=== PATIENT | male | born 1955 | race Caucasian/White ===

== ENCOUNTER 2019-03-09 00:02 | Emergency (ER) | payer MEDICARE, MEDICAID ==
[~2019-03-09] VITALS: Ht 195.5 cm; Wt 108.8 kg
[2019-03-09 00:39] LABS: ABG PCO2 49 MMHG (35-45); ABG PH 7.46 (7.37-7.43)
[2019-03-09 00:40] LABS: ABG BASE EXCESS 9.5 MMOL/L (-2.5-2.5); ABG OXYGEN SATURATION 55 % (94-100); ABG TCO2 36.3 MMOL/L (21.0-31.0)
[2019-03-09 00:41] LABS: ABG PO2 27 MMHG (79-93)
[2019-03-09 00:42] LABS: VENTILATOR NO
[2019-03-09 00:45] LABS: BASOPHILS % (AUTO) 1 % (0-10); EOSINOPHILS % (AUTO) 4 % (0-10); HEMATOCRIT 27 % (40-54); HEMOGLOBIN 8.5 G/DL (13.3-17.7); LYMPHOCYTES % (AUTO) 10 % (12-44); MEAN CORPUSCULAR HEMOGLOBIN 26 PG (25-34); MEAN CORPUSCULAR HGB CONC 32 G/DL (32-36); MEAN CORPUSCULAR VOLUME 83 FL (80-99); MEAN PLATELET VOLUME 9.9 FL (7.4-10.4); MONOCYTES % (AUTO) 6 % (0-12); NEUTROPHILS % (AUTO) 80 % (42-75); PLATELET COUNT 134 10^3/uL (130-400); RED CELL DISTRIBUTION WIDTH 13.8 % (10.0-14.5); WHITE BLOOD COUNT 3.4 10^3/uL (4.3-11.0)
[2019-03-09 00:46] LABS: EOSINOPHILS # (AUTO) 0.1 10^3/uL (0.0-0.3); LYMPHOCYTES # (AUTO) 0.4 X 10^3 (1.0-4.0); MONOCYTES # (AUTO) 0.2 X 10^3 (0.0-1.0); NEUTROPHILS # (AUTO) 2.7 X 10^3 (1.8-7.8)
[2019-03-09 00:50] LABS: ALLENS TEST NEG; INSPIRED O2 4
[2019-03-09 00:51] LABS: PATIENT TEMP 37.9 C
[2019-03-09 00:52] LABS: ALKALINE PHOSPHATASE 54 U/L (40-136); BILIRUBIN,TOTAL 0.8 MG/DL (0.1-1.0); BUN/CREATININE RATIO 16; CARBON DIOXIDE 27 MMOL/L (21-32); CHLORIDE 99 MMOL/L (98-107); CREATININE SERUM 1.53 MG/DL (0.60-1.30); GFR ESTIMATED 46; GLUCOSE 205 MG/DL (70-105); INR 1.3 (0.8-1.4); SODIUM 135 MMOL/L (135-145)
[2019-03-09 00:53] LABS: ALANINE AMINOTRANSFERASE < 5 U/L (0-55); ALBUMIN 3.2 GM/DL (3.2-4.5); LIPASE 14 U/L (8-78); TOTAL PROTEIN 6.5 GM/DL (6.4-8.2)
--- NOTE | 2019-03-09 00:59 | NUR ---
Patient is a poor historian. Full medical history is not obtained.
[2019-03-09] MEDS ORDERED: cefTRIAXone FOR IV USE 1,000 MG in WATER (STERILE) FOR INJECTION 10 ML IV ONE (01:00)
[2019-03-09] MEDS ORDERED: AZITHROMYCIN INJECTION 500 MG in NS (IVPB) 250 ML IV ONE (01:00)
[2019-03-09] MEDS ORDERED: FUROSEMIDE 40 MG/4 ML INJ (LASIX) IVP ONE (01:15)
--- NOTE | 2019-03-09 01:31 | ED Respiratory ---
General Chief Complaint: Respiratory Problems Stated Complaint: RESPIRATORY DISTRESS Nursing Triage Note: Patient arrived via EMS with complaints of shortness of breath over the last few days. EMS states that the patient's SPO2 was 83% on room air. EMS gave patient 125mg of Solumedrol and a DuoNeb. EMS also placed a 20g in the right wrist. EMS states that the patient lives in deplorable living conditions. There are several animals in the home. Patient does have fleas crawling all over him and he is very unkempt. Source: patient History of Present Illness Date Seen by Provider: Mar 09, 2019 Time Seen by Provider: 00:20 Initial Comments Patient is a 63-year-old male with history of chronic atrial fibrillation, congestive heart failure, chronic respiratory failure requiring supplemental oxygen who presents with increased peripheral edema over the past several days and increased shortness of breath over the past 3 days. Patient has required continuous oxygen use even during the daytime. He reports orthopnea and intermittent nocturnal dyspnea. Denies chest pain, chest tightness, fever but reports chronic cough. States he is compliant with his medications. He is not currently on anticoagulation therapy. No history of DVT or PE. Denies leg pain. No other acute symptoms or complaints. On EMS arrival, the patient was in mild respiratory distress. O2 saturations were in the low 80s on oxygen. Patient was placed on 6 L of O2 by nasal cannula, given single DuoNeb breathing treatment and 125 mg of Solu-Medrol. By IV and transported to the emergency department. Patient's cardiology team practices at [facility]. Timing/Duration: week Severity: moderate Prior Episodes/Possible Cause: other Modifying Factors: Improves With Activity, Improves With Coughing, Improves With Lying Down, Improves With Oxygen Associated Symptoms: shortness of breath Allergies and Home Medications Allergies Coded Allergies: oxycodone (Verified Allergy, Intermediate, 03/09/19) Patient Home Medication List Home Medication List Reviewed: Yes Review of Systems Review of Systems Constitutional: see HPI EENTM: see HPI Respiratory: see HPI Cardiovascular: see HPI Gastrointestinal: see HPI Genitourinary: see HPI Musculoskeletal: see HPI Skin: see HPI Psychiatric/Neurological: See HPI Hematologic/Lymphatic: See HPI Immunological/Allergic: see HPI Past Wncncij-Weglpj-Gylaid Hx Past Med/Social Hx: Reviewed Nursing Past Med/Soc Hx Patient Social History Alcohol Use: Denies Use Recreational Drug Use: No Smoking Status: Never a Smoker Recent Foreign Travel: No Contact w/Someone Who Travel: No Recent Infectious Disease Expo: No Physical Abuse: No Sexual Abuse: No Mistreated: No Fear: No Seasonal Allergies Seasonal Allergies: No Past Medical History Surgeries: Yes (Pacemaker) Respiratory: No Cardiac: Yes Atrial Fibrillation Neurological: No Genitourinary: No Gastrointestinal: No Musculoskeletal: No Endocrine: No HEENT: No Cancer: No Psychosocial: No Integumentary: No Physical Exam Vital Signs - First Documented 03/09/19 00:50 Temp 37.9 Pulse 109 Resp 26 B/P (MAP) 186/80 (115) Pulse Ox 92 O2 Delivery Nasal Cannula O2 Flow Rate 4.00 Capillary Refill : Less Than 3 Seconds Height: '" Weight: lbs. oz. 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, alert, normal mood/affect, oriented x 3 Focused Exam Sepsis Stage: Ruled Out Progress/Results/Core Measures Suspected Sepsis Recent Fever Within 48 Hours: No Infection Criteria Present: Suspected New Infection New/Unexplained Altered Menta: No Sepsis Screen: Possible Sepsis Risk SIRS Temperature: Pulse: 109 Respiratory Rate: 26 Laboratory Tests 03/09/19 00:10: White Blood Count 3.4L Blood Pressure 186 /80 Mean: 115 Laboratory Tests 03/09/19 00:10: Creatinine 1.53H, INR Comment 1.3, Platelet Count 134, Total Bilirubin 0.8 Results/Orders Lab Results Laboratory Tests Test 03/09/19 00:10 03/09/19 00:21 Range/Units White Blood Count 3.4 L 4.3-11.0 10^3/uL Red Blood Count 3.23 L 4.35-5.85 10^6/uL Hemoglobin 8.5 L 13.3-17.7 G/DL Hematocrit 27 L 40-54 % Mean Corpuscular Volume 83 80-99 FL Mean Corpuscular Hemoglobin 26 25-34 PG Mean Corpuscular Hemoglobin Concent 32 32-36 G/DL Red Cell Distribution Width 13.8 10.0-14.5 % Platelet Count 134 130-400 10^3/uL Mean Platelet Volume 9.9 7.4-10.4 FL Neutrophils (%) (Auto) 80 H 42-75 % Lymphocytes (%) (Auto) 10 L 12-44 % Monocytes (%) (Auto) 6 0-12 % Eosinophils (%) (Auto) 4 0-10 % Basophils (%) (Auto) 1 0-10 % Neutrophils # (Auto) 2.7 1.8-7.8 X 10^3 Lymphocytes # (Auto) 0.4 L 1.0-4.0 X 10^3 Monocytes # (Auto) 0.2 0.0-1.0 X 10^3 Eosinophils # (Auto) 0.1 0.0-0.3 10^3/uL Basophils # (Auto) 0.0 0.0-0.1 10^3/uL Prothrombin Time 17.0 H 12.2-14.7 SEC INR Comment 1.3 0.8-1.4 Activated Partial Thromboplast Time 51 H 24-35 SEC Sodium Level 135 135-145 MMOL/L Potassium Level 4.0 3.6-5.0 MMOL/L Chloride Level 99 98-107 MMOL/L Carbon Dioxide Level 27 21-32 MMOL/L Anion Gap 9 5-14 MMOL/L Blood Urea Nitrogen 25 H 7-18 MG/DL Creatinine 1.53 H 0.60-1.30 MG/DL Estimat Glomerular Filtration Rate 46 BUN/Creatinine Ratio 16 Glucose Level 205 H 70-105 MG/DL Calcium Level 9.0 8.5-10.1 MG/DL Corrected Calcium 9.6 8.5-10.1 MG/DL Total Bilirubin 0.8 0.1-1.0 MG/DL Aspartate Amino Transf (AST/SGOT) 14 5-34 U/L Alanine Aminotransferase (ALT/SGPT) < 5 0-55 U/L Alkaline Phosphatase 54 40-136 U/L Troponin I < 0.30 <0.30 NG/ML Pro-B-Type Natriuretic Peptide 4570.0 H <75.0 PG/ML Total Protein 6.5 6.4-8.2 GM/DL Albumin 3.2 3.2-4.5 GM/DL Lipase 14 8-78 U/L Serum Alcohol < 10 <10 MG/DL Blood Gas Puncture Site LEFT WRIST Blood Gas Patient Temperature 37.9 C Arterial Blood pH 7.46 H 7.37-7.43 Arterial Blood Partial Pressure CO2 49 H 35-45 MMHG Arterial Blood Partial Pressure O2 27 *L 79-93 MMHG Arterial Blood HCO3 35 H 23-27 MMOL/L Arterial Blood Total CO2 36.3 H 21.0-31.0 MMOL/L Arterial Blood Oxygen Saturation 55 L 94-100 % Arterial Blood Base Excess 9.5 H -2.5-2.5 MMOL/L Devyn Test NEG Blood Gas Ventilator Setting NO Blood Gas Inspired Oxygen 4 My Orders Orders - DIANA LEONARD DO Cbc With Automated Diff (03/09/19 00:07) Comprehensive Metabolic Panel (03/09/19 00:07) Lipase (03/09/19 00:07) Protime With Inr (03/09/19 00:07) Partial Thromboplastin Time (03/09/19 00:07) Chest 1 View Ap/Pa Only (03/09/19 00:07) Arterial Blood Gas (03/09/19 00:07) Lactic Acid Analyzer (03/09/19 00:07) Blood Culture (03/09/19 00:07) Troponin I Fs (03/09/19 00:07) Ua Culture If Indicated (03/09/19 00:07) Drug Screen Stat (Urine) (03/09/19 00:07) Alcohol (03/09/19 00:07) Ekg Tracing (03/09/19 00:07) Ceftriaxone For Iv Use (Rocephin For I (03/09/19 01:00) Azithromycin Injection (Zithromax Inject (03/09/19 01:00) Blood Culture (03/09/19 00:48) Probnp Fs (03/09/19 00:58) Furosemide Injection (Lasix Injection) (03/09/19 01:15) Medications Given in ED Current Medications Medications Dose Ordered Sig/Stephen Route Start Time Stop Time Status Last Admin Dose Admin Azithromycin 500 mg/Sodium Chloride 250 ml @ 250 mls/hr ONCE ONCE IV 03/09/19 01:00 03/09/19 01:59 03/09/19 01:21 250 MLS/HR Ceftriaxone Sodium 1000 mg/ Sterile Water 10 ml @ 200 mls/hr ONCE ONCE IV 03/09/19 01:00 03/09/19 01:02 DC 03/09/19 01:22 200 MLS/HR Furosemide 40 mg ONCE ONCE IVP 03/09/19 01:15 03/09/19 01:16 DC 03/09/19 01:21 40 MG Vital Signs/I&O 03/09/19 00:50 Temp 37.9 Pulse 109 Resp 26 B/P (MAP) 186/80 (115) Pulse Ox 92 O2 Delivery Nasal Cannula O2 Flow Rate 4.00 Capillary Refill : Less Than 3 Seconds Blood Pressure Mean: 115 Departure Communication (Admissions) EKG, chest x-ray, lab reviewed. Symptoms most consistent with congestive heart failure from volume overload in the setting of rate controlled A. fib. Chest x- ray suspicious for the presence of left lower lobe infiltrate. IV Lasix, breathing treatment IV Rocephin and Zithromax given. Blood pressure stable. O2 saturation greater than 95%. Patient accepted to [facility]. Will trasnfer by ambulance Impression Primary Impression: Acute and chronic respiratory failure Additional Impressions: Afib Congestive heart failure (CHF) Disposition: 02 XFER SHT-TRM HOSP Condition: Improved Transfer Method of Transfer: EMS Departure-Patient Inst. Decision time for Depature: 01:34 Referrals: UNKNOWN (PCP/Family) Primary Care Physician DIANA LEONARD DO Mar 09, 2019 01:31
[2019-03-09] MEDS ORDERED: ONDANSETRON 4 MG/2 ML (SDV) Z0FRAN ONE (02:20)
[2019-03-09] MEDS ORDERED: ONDANSETRON 4 MG/2 ML (SDV) Z0FRAN IVP ONE (02:30)
[2019-03-09 02:43] VITALS: BP 142/75
--- NOTE | 2019-03-09 06:39 | Diagnostic Imaging Report ---
Clinical indication: Patient with shortness of breath, respiratory distress. Exam: Portable chest x-ray upright view. Comparisons: None. Findings: Lungs/pleura: There is small to moderate amount of lung infiltrate involving the left midlung field left lung base. There is a small left pleural effusion. There is mild right basilar atelectasis versus infiltrate. The remainder of the lungs are clear. There is no pneumothorax. There is no pleural effusion. Mediastinum: Unremarkable. Pulmonary vasculature: There is mild pulmonary vascular congestion. Heart: Patient has dextrocardia with aortic arch on the right side. Patient positioning was discussed with x-ray tech. Bones/extrathoracic soft tissue: No hypertrophic spurs involving the spine. 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 There is cardiomegaly with mild pulmonary vascular congestion. 2: There is mild to moderate left midlung field and left lung base infiltrate. This may be from infectious process or from pulmonary congestion. 3: There is mild right lung base atelectasis versus infiltrate. 4: There is a small left pleural effusion. Dictated by: Dictated on workstation # [id number]
== END 2019-03-09 02:43 | disposition short-term general hospital (02) ==
LOC: ER FS 00:05
DX: J96.20 Acute and chronic respiratory failure, unspecified whether with hypoxia or hypercapnia (principal); I48.91 Unspecified atrial fibrillation; I50.9 Heart failure, unspecified; Z88.5 Allergy status to narcotic agent; Z95.0 Presence of cardiac pacemaker
CPT/HCPCS: 71045; 80053; 80320; 82805; 83690; 83880; 84484; 85610; 85730; 87040; 93005; 96365; 96375

== ENCOUNTER → 2020-03-23 | Outpatient (CLI) | payer MEDICARE, MEDICAID ==
[~2020-03-23] MED LIST: AMLO10TA7 PO; CHOL500049 PO; DABI150C5 PO; DILT240C91 PO; DULO60CA59 PO; ERGO2000 PO; EXEN2PEN SC; FENO145T26 PO; FURO20TA4 PO; GABA-486 PO; LEVO50TA6 PO; LORA-714 PO; LORA10TA7 PO; MTP25TSR PO; OMEP20CA18 PO; OMEP20TA7 PO; SACU1TAB2 PO; SACU1TAB4 PO; TMSL.4C PO; TRAM50TA3 PO; VANC1.5V3 IV
[2020-03-23 17:36] LABS: ALBUMIN 3.2 GM/DL (3.2-4.5); BILIRUBIN,TOTAL 0.5 MG/DL (0.1-1.0); CALCIUM 8.3 MG/DL (8.5-10.1); CREATININE SERUM 6.69 MG/DL (0.60-1.30); POTASSIUM 5.4 MMOL/L (3.6-5.0); TOTAL PROTEIN 6.9 GM/DL (6.4-8.2)
[2020-03-23 17:40] LABS: BASOPHILS % (AUTO) 1 % (0-10); EOSINOPHILS # (AUTO) 0.1 10^3/uL (0.0-0.3); EOSINOPHILS % (AUTO) 3 % (0-10); HEMATOCRIT 24 % (40-54); HEMOGLOBIN 7.6 G/DL (13.3-17.7); LYMPHOCYTES # (AUTO) 0.5 X 10^3 (1.0-4.0); LYMPHOCYTES % (AUTO) 18 % (12-44); MEAN CORPUSCULAR HEMOGLOBIN 27 PG (25-34); MEAN CORPUSCULAR HGB CONC 32 G/DL (32-36); MEAN CORPUSCULAR VOLUME 85 FL (80-99); MEAN PLATELET VOLUME 10.6 FL (7.4-10.4); MONOCYTES # (AUTO) 0.4 X 10^3 (0.0-1.0); MONOCYTES % (AUTO) 12 % (0-12); NEUTROPHILS % (AUTO) 66 % (42-75); PLATELET COUNT 207 10^3/uL (130-400)
[2020-03-23 18:12] LABS: VANCOMYCIN,TROUGH 53.8 UG/ML (10.0-20.0)
== END ==
LOC: LAB FS 15:43
PROVIDERS: ATTEND Emergency Medicine
DX: I40.0 Infective myocarditis (principal); A41.9 Sepsis, unspecified organism
CPT/HCPCS: 36415; 80053; 80202; 85025

== ENCOUNTER 2020-03-28 23:34 | Emergency (ER) | payer MEDICARE, MEDICAID ==
[~2020-03-28] VITALS: Ht 193 cm; Wt 115.0 kg
[2020-03-29 00:19] LABS: BASOPHILS % (AUTO) 1 % (0-10); EOSINOPHILS % (AUTO) 1 % (0-10); HEMATOCRIT 23 % (40-54); HEMOGLOBIN 7.5 g/dL (13.3-17.7); LYMPHOCYTES # (AUTO) 0.3 10^3/uL (1.0-4.0); LYMPHOCYTES % (AUTO) 9 % (12-44); MEAN CORPUSCULAR HEMOGLOBIN 27 pg (25-34); MEAN CORPUSCULAR HGB CONC 32 g/dL (32-36); MEAN CORPUSCULAR VOLUME 83 fL (80-99); MEAN PLATELET VOLUME 9.3 fL (9.0-12.2); MONOCYTES # (AUTO) 0.4 10^3/uL (0.0-1.0); MONOCYTES % (AUTO) 11 % (0-12); NEUTROPHILS # (AUTO) 2.5 10^3/uL (1.8-7.8); NEUTROPHILS % (AUTO) 78 % (42-75); PLATELET COUNT 184 10^3/uL (130-400); WHITE BLOOD COUNT 3.2 10^3/uL (4.3-11.0)
[2020-03-29 00:29] LABS: ALBUMIN 3.2 GM/DL (3.2-4.5)
[2020-03-29 00:31] LABS: CALCIUM 7.7 MG/DL (8.5-10.1)
[2020-03-29 00:32] LABS: TOTAL PROTEIN 6.8 GM/DL (6.4-8.2)
[2020-03-29 00:34] LABS: BILIRUBIN,TOTAL 1.1 MG/DL (0.1-1.0)
[2020-03-29 00:36] LABS: CREATININE SERUM 11.85 MG/DL (0.60-1.30)
[2020-03-29 00:39] LABS: INR 4.3 (0.8-1.4); MAGNESIUM 1.2 MG/DL (1.6-2.4); PROTHROMBIN TIME PATIENT 41.2 SEC (12.2-14.7)
[2020-03-29 00:46] LABS: CREATINE KINASE MB 3.1 NG/ML (<6.6)
[2020-03-29] MEDS ORDERED: methylPREDNISolone 125 MG (Solu-MEDROL) VIAL IV STA (00:49)
[2020-03-29 00:58] LABS: ABG BASE EXCESS -0.8 MMOL/L (-2.5-2.5); ABG OXYGEN SATURATION 99 % (94-100); ABG PCO2 38 MMHG (35-45); ABG PH 7.41 (7.37-7.43); ABG PO2 189 MMHG (79-93); ABG TCO2 24.6 MMOL/L (21.0-31.0)
[2020-03-29 00:59] LABS: ALLENS TEST POSITIVE; INSPIRED O2 15; PATIENT TEMP 36.6; VENTILATOR NO
[2020-03-29] MEDS ORDERED: CALCIUM CHLORIDE 1 GM/10 ML (IMS) SYR INJ ONE (01:00)
[2020-03-29] MEDS ORDERED: SOD POLYSTERENE 15 GM/60 ML (KAYEXALATE) UNIT DOSE PO ONE (01:00)
[2020-03-29] MEDS ORDERED: DEXTROSE 50% 50 ML (IMS) SYR IV ONE (01:00)
[2020-03-29] MEDS ORDERED: FUROSEMIDE 40 MG/4 ML INJ (LASIX) IVP ONE ×3 (01:00→03:00)
[2020-03-29] MEDS ORDERED: inSUlin (REGULAR) HUMAN 1 UNIT/0.01 ML (CHARGE PER UNIT) IV ONE (01:00)
[2020-03-29] MEDS ORDERED: RT-ALBUTEROL/IPRATROPIUM 3 ML (DUONEB) VIAL INH ONE (01:00)
--- NOTE | 2020-03-29 01:11 | ED General ---
General Chief Complaint: General Problems/Pain Stated Complaint: JAUNDICE, DIZZY Nursing Triage Note: brought in by [facility] ems for generalized weakness. reports he is supposed to start dialysis today. Nursing Sepsis Screen: No Definite Risk Source of Information: Patient (LIMITED HISTORIAN), Old Records History of Present Illness Date Seen by Provider: Mar 28, 2020 Time Seen by Provider: 23:33 Initial Comments PT ARRIVES VIA [facility] FROM HOME IN [place] PT CALLED EMS FOR GENERALIZED WEAKNESS AND DIZZINESS--STATES ALL DAY TODAY PT WITH INCREASED SHORTNESS OF BREATH X 2 DAYS NO CHEST PAIN NO FEVER/SWEATS/CHILLS NO NAUSEA/VOMITING/DIARRHEA NO COUGH PT WAS ADMITTED 03/09-03/16 FOR RESPIRATORY FAILURE, RENAL FAILURE. CHRONIC ATRIAL FIBRILLATION, MRSA BACTEREMIA/SEPSIS ( UNKNOWN SOURCE)--PRESENTED WITH ALTERED MENTAL STATUS PT STATES HE WAS SUPPOSED TO BE STARTING ON DIALYSIS TODAY--HAS NO IDEA WHERE HE WAS TO BE DOING THAT. 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 WAS RECEIVING VANCOMYCIN PT DOES HAVE A PACEMAKER IN PLACE PT WAS COVID-19 NEGATIVE ON 03/10/20 PCP: DR. SWAIN, [place] [facility]: [facility] Allergies and Home Medications Allergies Coded Allergies: oxycodone (Verified Allergy, Intermediate, 03/09/19) Home Medications Cholecalciferol (Vitamin D3) 1,250 Mcg Capsule, 1,250 MCG PO EVERY 2 WEEKS, (Reported) Dabigatran Etexilate Mesylate 150 Mg Capsule, 150 MG PO BID, (Reported) Diltiazem HCl 240 Mg Cap.er.24h, 240 MG PO DAILY Prescribed by: ABRAHAM ONEAL on 03/16/20 1120 Duloxetine HCl 60 Mg Capsule.dr, 60 MG PO DAILY, (Reported) Exenatide Microspheres 2 Mg/0.65 Ml Pen.injctr, 2 MG SC TUES, (Reported) Fenofibrate Nanocrystallized 145 Mg Tablet, 145 MG PO DAILY, (Reported) Furosemide 20 Mg Tablet, 40 MG PO DAILY, (Reported) TAKES 2 (20MG) TABS Furosemide 20 Mg Tablet, 40 MG PO 1800 PRN for WEIGHTGAIN OVER 2 LB, (Reported) Gabapentin 100 Mg Capsule, 100 MG PO TID, (Reported) Levothyroxine Sodium 50 Mcg Tablet, 50 MCG PO DAILY, (Reported) Loratadine 10 Mg Tablet, 10 MG PO DAILY, (Reported) Metoprolol Succinate 25 Mg Tab.er.24h, 25 MG PO DAILY, (Reported) Omeprazole 20 Mg Capsule.dr, 20 MG PO DAILY, (Reported) Sacubitril/Valsartan 1 Each Tablet, 1 EA PO DAILY, (Reported) Tamsulosin HCl 0.4 Mg Cap, 0.4 MG PO 1800, (Reported) Tramadol HCl 50 Mg Tablet, 50 MG PO BID PRN for PAIN-MODERATE (5-7), (Reported) Vancomycin HCl in Water 1.5 Gm/15 Ml Vial, 1.5 GM IV DAILY Prescribed by: ABRAHAM ONEAL on 03/16/20 1120 Patient Home Medication List Home Medication List Reviewed: Yes Review of Systems Review of Systems Constitutional: No chills, No diaphoresis; dizziness; No fever; malaise, weakness EENTM: no symptoms reported Respiratory: see HPI, orthopnea, short of breath Cardiovascular: see HPI; No chest pain; edema; No syncope Gastrointestinal: no symptoms reported; No abdominal pain, No nausea, No vomiting Genitourinary: see HPI; No decreased output Musculoskeletal: no symptoms reported Skin: no symptoms reported Psychiatric/Neurological: No Symptoms Reported Past Uvzfnqm-Sfdbcg-Ijvzfj Hx Patient Social History Alcohol Use: Denies Use (DRANK AGE 21) Recreational Drug Use: No Smoking Status: Former Smoker (1 PPD, QUIT > 35 YEARS AGO) Type Used: Cigarettes Recent Foreign Travel: No Contact w/Someone Who Travel: No Recent Infectious Disease Expo: No Recent Hopitalizations: No Seasonal Allergies Seasonal Allergies: Yes Past Medical History Surgeries: Yes (Pacemaker) Pacemaker Respiratory: Yes (O2 PRN) Cardiac: Yes (Dextrocardia, Heart Failure) Atrial Fibrillation, Cardiomyopathy, Chronic Edema/Swelling, High Cholesterol, Hypertension Neurological: Yes Neuropathy Genitourinary: Yes Benign Prostatic Hyperpl, Renal Failure Gastrointestinal: Yes Gastroesophageal Reflux Musculoskeletal: No Endocrine: Yes (MORBID OBESITY) Diabetes, Insulin dep, Hypothyroidsim HEENT: No Cancer: No Psychosocial: Yes Depression Integumentary: No Blood Disorders: No Family Medical History ADMITTED 03/09/20 FOR MRSA BACTEREMIA WITH SEPSIS, DX WITH RENAL FAILURE AND WAS TO START DIALYSIS 03/29/20 Physical Exam Vital Signs Vital Signs - First Documented 03/28/20 03/29/20 23:35 02:17 Temp 36.6 Pulse 129 Resp 27 B/P (MAP) 140/91 (107) Pulse Ox 100 O2 Delivery Room Air O2 Flow Rate 6.00 Capillary Refill : Less Than 3 Seconds Height, Weight, BMI Height: '" Weight: lbs. oz. kg; 30.00 BMI Method: General Appearance: Moderate Distress (MODERATE DYSPNEA, TALKS IN 2-3 WORD PHRASES. ), Obese, Other (DIRTY, MALODOROUS, UNKEMPT. LETHARGIC. ) HEENT: Other (EDENTULOUS) Respiratory: Accessory Muscle Use, Decreased Breath Sounds, Rales, Other (MODERATE DISTRESS, WITH ABDOMINAL BREATHING. NO BREATH SOUNDS IN RIGHT BASE, FAINT RALES IN LEFT BASE. ) Cardiovascular: Irregularly Irregular, Tachycardia Gastrointestinal: Non Tender, Soft Extremity: Normal Range of Motion, No Calf Tenderness, Pedal Edema (2+ ON RIGHT, TRACE ON LEFT. 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 ) Neurologic/Psychiatric: Alert, Oriented x3 (BUT WITH LETHARGY), No Motor/Sensory Deficits (GROSSLY INTACT, WITH HX OF PERIPHERAL NEUROPATHY) Skin: Warm/Dry, Pallor, Other (EXTENSIVE SORES/SCARS/SCABS AND SCRATCH JARA TO LEGS, ABDOMEN, AND ARMS--PT STATES IS FROM HIS CATS. NO OBVIOUS INFECTION TO ANY OF THESE SITES. ) Progress/Results/Core Measures Suspected Sepsis Recent Fever Within 48 Hours: No Infection Criteria Present: None New/Unexplained Altered Menta: No Sepsis Screen: No Definite Risk SIRS Temperature: Pulse: 129 Respiratory Rate: 27 Laboratory Tests 03/29/20 00:05: White Blood Count 3.2L Blood Pressure 140 /91 Mean: 107 Laboratory Tests 03/29/20 00:05: Creatinine 11.85#H, INR Comment 4.3H, Platelet Count 184, Total Bilirubin 1.1H Results/Orders Lab Results Laboratory Tests Test 03/29/20 00:05 03/29/20 00:32 Range/Units White Blood Count 3.2 L 4.3-11.0 10^3/uL Red Blood Count 2.80 L 4.30-5.52 10^6/uL Hemoglobin 7.5 L 13.3-17.7 g/dL Hematocrit 23 L 40-54 % Mean Corpuscular Volume 83 80-99 fL Mean Corpuscular Hemoglobin 27 25-34 pg Mean Corpuscular Hemoglobin Concent 32 32-36 g/dL Red Cell Distribution Width 13.8 10.0-14.5 % Platelet Count 184 130-400 10^3/uL Mean Platelet Volume 9.3 9.0-12.2 fL Immature Granulocyte % (Auto) 1 % Neutrophils (%) (Auto) 78 H 42-75 % Lymphocytes (%) (Auto) 9 L 12-44 % Monocytes (%) (Auto) 11 0-12 % Eosinophils (%) (Auto) 1 0-10 % Basophils (%) (Auto) 1 0-10 % Neutrophils # (Auto) 2.5 1.8-7.8 10^3/uL Lymphocytes # (Auto) 0.3 L 1.0-4.0 10^3/uL Monocytes # (Auto) 0.4 0.0-1.0 10^3/uL Eosinophils # (Auto) 0.0 0.0-0.3 10^3/uL Basophils # (Auto) 0.0 0.0-0.1 10^3/uL Immature Granulocyte # (Auto) 0.0 0.0-0.1 10^3/uL Prothrombin Time 41.2 H 12.2-14.7 SEC INR Comment 4.3 H 0.8-1.4 Activated Partial Thromboplast Time 127 *H 24-35 SEC Sodium Level 126 L 135-145 MMOL/L Potassium Level 6.0 H 3.6-5.0 MMOL/L Chloride Level 87 L 98-107 MMOL/L Carbon Dioxide Level 20 L 21-32 MMOL/L Anion Gap 19 H 5-14 MMOL/L Blood Urea Nitrogen 66 H 7-18 MG/DL Creatinine 11.85 #H 0.60-1.30 MG/DL Estimat Glomerular Filtration Rate 4 BUN/Creatinine Ratio 6 Glucose Level 182 H 70-105 MG/DL Calcium Level 7.7 L 8.5-10.1 MG/DL Corrected Calcium 8.3 L 8.5-10.1 MG/DL Magnesium Level 1.2 L 1.6-2.4 MG/DL Total Bilirubin 1.1 H 0.1-1.0 MG/DL Aspartate Amino Transf (AST/SGOT) 17 5-34 U/L Alanine Aminotransferase (ALT/SGPT) 9 0-55 U/L Alkaline Phosphatase 43 40-136 U/L Lactate Dehydrogenase 214 125-220 U/L Total Creatine Kinase 208 H 30-200 U/L Creatine Kinase MB 3.1 <6.6 NG/ML Troponin I 0.035 H <0.028 NG/ML B-Type Natriuretic Peptide 1080.5 H <100.0 PG/ML Total Protein 6.8 6.4-8.2 GM/DL Albumin 3.2 3.2-4.5 GM/DL Procalcitonin 0.23 H <0.10 NG/ML Coronavirus 2019 (OPAL) Negative Negative Blood Gas Puncture Site LEFT RADIAL Blood Gas Patient Temperature 36.6 Arterial Blood pH 7.41 7.37-7.43 Arterial Blood Partial Pressure CO2 38 35-45 MMHG Arterial Blood Partial Pressure O2 189 H 79-93 MMHG Arterial Blood HCO3 23 23-27 MMOL/L Arterial Blood Total CO2 24.6 21.0-31.0 MMOL/L Arterial Blood Oxygen Saturation 99 94-100 % Arterial Blood Base Excess -0.8 -2.5-2.5 MMOL/L Devyn Test POSITIVE Blood Gas Ventilator Setting NO Blood Gas Inspired Oxygen 15 Micro Results Microbiology 03/29/20 Influenza Types A,B Antigen (BLAKE) - Final, Complete 03/29/20 Blood Culture - Preliminary, Resulted No growth My Orders Orders - DARRELL AMAYA DO Ed Iv/Invasive Line Start (03/28/20 23:40) Ekg Tracing (03/28/20 23:40) O2 (03/28/20 23:40) Monitor-Rhythm Ecg Trace Only (03/28/20 23:40) Arterial Blood Gas (03/28/20 23:40) BNP (03/28/20 23:40) Cbc With Automated Diff (03/28/20 23:40) Comprehensive Metabolic Panel (03/28/20 23:40) Creatine Kinase (03/28/20 23:40) Creatine Kinase Mb (03/28/20 23:40) Magnesium (03/28/20 23:40) Protime With Inr (03/28/20 23:40) Partial Thromboplastin Time (03/28/20 23:40) Blood Culture (03/28/20 23:40) Influenza A And B Antigens (03/28/20 23:40) Troponin I (03/28/20 23:40) Procalcitonin (Pct) (03/28/20 23:42) LDH (03/28/20 23:42) Covid 19 Inhouse Test (03/28/20 23:42) Chest 1 View, Ap/Pa Only (03/29/20 00:07) Calcium Chloride 10% Injection (Calcium (03/29/20 01:00) D50w (Emergency) Syringe (Dextrose 50% 5 (03/29/20 01:00) Insulin (Regular) Human (Novolin R (Per (03/29/20 01:00) Sodium Polystyrene Sulfonate (Kayexalate (03/29/20 01:00) Albuterol/Ipra Inhalation Soln (Duoneb I (03/29/20 01:00) Rt Request For Service (03/29/20 00:49) Methylprednisolone Sod Succ (Solu-Medrol (03/29/20 00:49) Svn Small Volume Nebulizer (03/29/20 00:49) Magnesium 1 Gm/100 Ml Ivpb (Magnesium Mei (03/29/20 01:00) Furosemide Injection (Lasix Injection) (03/29/20 01:00) Diltiazem Injection (Cardizem Injection) (03/29/20 01:00) Calcium Gluconate 10% Inj (Calcium Glu (03/29/20 01:30) Furosemide Injection (Lasix Injection) (03/29/20 03:00) Furosemide Injection (Lasix Injection) (03/29/20 03:00) Catheter(Urinary) Insert & Ass 03,15 (03/29/20 03:00) Medications Given in ED Vital Signs/I&O 03/29/20 08:33 Pulse 100 Resp 18 B/P (MAP) 109/92 Pulse Ox 100 O2 Delivery Nasal Cannula O2 Flow Rate 4.00 Capillary Refill : Less Than 3 Seconds Blood Pressure Mean: 107 Progress Note : Progress Note NO DETERIORATION IN PT'S CONDITION DURING ER STAY INITIALLY CONTINUED ON O2 AT 15L/NRB. WAS ABLE TO TITRATE THIS DOWN GIVEN LASIX, SOLU-MEDROL, MAGNESIUM GIVEN CALCIUM GLUCONATE, D50, INSULIN, KAYEXELATE AND HOUR LONG ALBUTEROL TREATMENT FOR HYPERKALEMIA GIVEN CARDIZEM WITH DECREASE IN HEART RATE TO 80-100, BP STABLE AT >100 SYSTOLIC PT REPEATEDLY ADAMANTLY REFUSES MAURO CATHETER RAPID COVID-19 TEST NEGATIVE ECG Initial ECG Impression Date: Mar 28, 2020 Initial ECG Impression Time: 23:38 Initial ECG Rate: 139 Initial ECG Impression: Nonspecific Changes (OLD ANTERIOR WAVES. LOW VOLTAGE ), Atrial Fibrillation, Atrial Fibrillation w/RVR Diagnostic Imaging Comments CXR--DEXTROCARDIA WITH CARDIOMEGALY, CHF/FLUID OVERLOAD, PENDING RADIOLOGIST REVIEW Reviewed: Reviewed by Me Departure Communication (Admissions) 0138--CALLED [facility], WILL CALL BACK. PAGING PSYCH ARNP. 0208--[facility] CALLED BACK. STILL PAGING PSYCH ARNP. WILL CALL BACK 0209--CALLED [facility], ON DIVERSION/NO BEDS AVAILABLE 021--CALLED [facility], ON DIVERSION/NO BEDS AVAILABLE 0213--CALLED [facility], ON DIVERSION/NO BEDS AVAILABLE. THEY WILL ATTEMPT TO FIND BED AT [facility] IN [place] 0226--[facility] CALLED BACK. DR. ALEJANDRA DE LA CRUZ, PSYCH ARNP HAS ACCEPTED PT FOR ADMIT/TRANSFER. ADVISES AN ADDITIONAL 120 MG OF LASIX ( FOR A TOTAL OF 200 MG LASIX) 0254--SPOKE WITH MARLIN ZAVALETA WITH , REPORT GIVEN. NO ADDITIONAL RECOMMENDATIONS. WILL CALL BACK WITH BED ASSIGNMENT 0331--[facility] CALLED BACK WITH BED ASSIGNMENT AND NURSE REPORT # [id number]--RECEIVED CALL BACK ABOUT [facility] [place]. ADVISED THEM PT HAS NOW BEEN ACCEPTED AT . 0350--[facility] CONTACTED FOR TRANSFER AND ARE UNAVAILABLE FOR TRANSFER AT THIS TIME. [facility] HAS BEEN CONTACTED FOR TRANSFER. WILL NOT BE ABLE TO TRANSFER UNTIL AFTER SHIFT CHANGE AT 0800 THIS AM. Impression Primary Impression: Renal failure Additional Impressions: Fluid overload Hypoxia Atrial fibrillation with RVR Chronic atrial fibrillation T2DM (type 2 diabetes mellitus) Anemia Neutropenia Cat scratch of multiple sites RECENT MRSA SEPSIS Hyperkalemia Hyponatremia Hypomagnesemia Hypocalcemia Obesity Right leg swelling Disposition: 02 XFER SHT-TRM HOSP Condition: Stable Transfer Transfer Reason: Exceeds level of care Transfer Facility: [facility] Method of Transfer: EMS Departure-Patient Inst. Referrals: DEYSI SWAIN DO (PCP/Family) Primary Care Physician DARRELL AMAYA DO Mar 29, 2020 01:11
[2020-03-29] MEDS ORDERED: CALCIUM GLUC. 10% 4.65 MEQ/10 ML VIAL IV ONE (01:30)
[2020-03-29] MEDS: MAGNESIUM 1 GM/100 ML IVPB 100 ML IV SCH ×2 (01:40→02:36)
--- NOTE | 2020-03-29 03:10 | NUR ---
pt refused kessler catheter
--- NOTE | 2020-03-29 03:35 | NUR ---
pt informed of bed assignment.
--- NOTE | 2020-03-29 03:41 | NUR ---
[facility] shift capt. informed of transfer. no transport truck available until after shift change.
--- NOTE | 2020-03-29 03:43 | NUR ---
[facility] ems unable to transport pt.
--- NOTE | 2020-03-29 03:44 | NUR ---
[facility] dispatch contacted for transfer.
--- NOTE | 2020-03-29 03:50 | NUR ---
pt informed no transport available at this time. plan for transfer after ems shift change.
--- NOTE | 2020-03-29 07:00 | NUR ---
EMS DISPATCH CALLED THEY ARE AWARE OF TRANSFER TO GO AFTER 0800
--- NOTE | 2020-03-29 07:14 | Diagnostic Imaging Report ---
INDICATION: Dyspnea. Comparison made with prior examination 03/16/2020. FINDINGS: There is dextrocardia. There is a left basilar infiltrate. There may be a small left pleural effusion. There is some venous congestion. There is no pneumothorax. Mediastinum is unremarkable. Pacemaker overlies left hemithorax. IMPRESSION: Left basilar infiltrate and small left pleural effusion suspect for pneumonia. Cardiomegaly and some central pulmonary venous congestion. Incidental dextrocardia. Dictated by: Dictated on workstation # [id number]
--- NOTE | 2020-03-29 07:15 | NUR ---
TO ROOM MONITOR SHOWS A FIB WITH RATE OF 100 NO NEW C/O
--- NOTE | 2020-03-29 08:20 | NUR ---
WAITING FOR EMS FOR TRANSFER. HR 113 SAO2 95 4L NC
--- NOTE | 2020-03-29 08:31 | NUR ---
EMS HERE FOR TRANSFER TO [facility] TRANSFER CENTER NOTIFIED PATIENT WAS LEAVNG VIA [facility].
[2020-03-29 08:33] VITALS: BP 109/92
== END 2020-03-29 08:36 | disposition short-term general hospital (02) ==
LOC: EDUNIT# 23:34 → ER 23:36
DX: E11.22 Type 2 diabetes mellitus with diabetic chronic kidney disease (principal); N18.9 Chronic kidney disease, unspecified; I12.9 Hypertensive chronic kidney disease with stage 1 through stage 4 chronic kidney disease, or unspecified chronic kidney disease; E87.70 Fluid overload, unspecified; R09.02 Hypoxemia; I48.20 Chronic atrial fibrillation, unspecified; D64.9 Anemia, unspecified; D70.9 Neutropenia, unspecified; A41.02 Sepsis due to Methicillin resistant Staphylococcus aureus; E87.5 Hyperkalemia; E87.1 Hypo-osmolality and hyponatremia; E83.42 Hypomagnesemia; E83.51 Hypocalcemia; K21.9 Gastro-esophageal reflux disease without esophagitis; N40.0 Benign prostatic hyperplasia without lower urinary tract symptoms; E78.00 Pure hypercholesterolemia, unspecified; E03.9 Hypothyroidism, unspecified; E66.01 Morbid (severe) obesity due to excess calories; Z68.30 Body mass index [BMI] 30.0-30.9, adult; Z87.891 Personal history of nicotine dependence; Z95.0 Presence of cardiac pacemaker; Z79.890 Hormone replacement therapy; Z88.5 Allergy status to narcotic agent; Z20.828 Contact with and (suspected) exposure to other viral communicable diseases
CPT/HCPCS: 36415; 71045; 80053; 82550; 82553; 82805; 83615; 83735; 83880; 84145; 84484; 85025; 85610; 85730; 87040; 87635; 87804; 93005; 93041; 94640; 99291

== ENCOUNTER 2020-04-16 14:23 | Emergency (ER) | payer MEDICARE, MEDICAID ==
[~2020-04-16] VITALS: Ht 182 cm; Wt 110.0 kg
[~2020-04-16 14:23] MED LIST changes: +AMLO-251 PO; -AMLO10TA7 PO
--- NOTE | 2020-04-16 14:41 | ED General ---
General Stated Complaint: LEG SWELLING Source of Information: Patient Exam Limitations: No Limitations History of Present Illness Date Seen by Provider: Apr 16, 2020 Time Seen by Provider: 14:39 Initial Comments To ER by private vehicle from home with reports of lower extremity swelling. This affects both lower extremities. It was noticed at the dialysis center today. He gets hemodialysis Monday. He completed his entire course of dialysis today but the dialysis staff was concerned about the degree of swelling both lower legs. He was also supposed to have a vancomycin infusion for "the valves around the heart" at 1 PM today but he missed that appointment. He states that both lower extremity been swollen since he was released from 2 weeks ago. Severity: Moderate Associated Systoms: Denies Symptoms Allergies and Home Medications Allergies Coded Allergies: oxycodone (Verified Allergy, Intermediate, 03/09/19) Home Medications Cholecalciferol (Vitamin D3) 1,250 Mcg Capsule, 1,250 MCG PO EVERY 2 WEEKS, (Reported) Dabigatran Etexilate Mesylate 150 Mg Capsule, 150 MG PO BID, (Reported) Diltiazem HCl 240 Mg Cap.er.24h, 240 MG PO DAILY Prescribed by: ABRAHAM ONEAL on 03/16/20 1120 Duloxetine HCl 60 Mg Capsule.dr, 60 MG PO DAILY, (Reported) Exenatide Microspheres 2 Mg/0.65 Ml Pen.injctr, 2 MG SC TUES, (Reported) Fenofibrate Nanocrystallized 145 Mg Tablet, 145 MG PO DAILY, (Reported) Furosemide 20 Mg Tablet, 40 MG PO DAILY, (Reported) TAKES 2 (20MG) TABS Furosemide 20 Mg Tablet, 40 MG PO 1800 PRN for WEIGHTGAIN OVER 2 LB, (Reported) Gabapentin 100 Mg Capsule, 100 MG PO TID, (Reported) Levothyroxine Sodium 50 Mcg Tablet, 50 MCG PO DAILY, (Reported) Loratadine 10 Mg Tablet, 10 MG PO DAILY, (Reported) Metoprolol Succinate 25 Mg Tab.er.24h, 25 MG PO DAILY, (Reported) Omeprazole 20 Mg Capsule.dr, 20 MG PO DAILY, (Reported) Sacubitril/Valsartan 1 Each Tablet, 1 EA PO DAILY, (Reported) Tamsulosin HCl 0.4 Mg Cap, 0.4 MG PO 1800, (Reported) Tramadol HCl 50 Mg Tablet, 50 MG PO BID PRN for PAIN-MODERATE (5-7), (Reported) Vancomycin HCl in Water 1.5 Gm/15 Ml Vial, 1.5 GM IV DAILY Prescribed by: ABRAHAM ONEAL on 03/16/20 1120 Patient Home Medication List Home Medication List Reviewed: Yes Review of Systems Review of Systems Constitutional: see HPI EENTM: see HPI Respiratory: no symptoms reported Cardiovascular: no symptoms reported Genitourinary: no symptoms reported Musculoskeletal: see HPI Skin: no symptoms reported Psychiatric/Neurological: No Symptoms Reported Hematologic/Lymphatic: No Symptoms Reported Immunological/Allergic: no symptoms reported Past [place]elbb[place]-Okeiqm-Jqlqom Hx Patient Social History Type Used: Cigarettes Recent Foreign Travel: No Contact w/Someone Who Travel: No Recent Hopitalizations: No Seasonal Allergies Seasonal Allergies: Yes Past Medical History Surgeries: Yes (Pacemaker) Pacemaker Respiratory: Yes (O2 PRN) Cardiac: Yes (Dextrocardia, Heart Failure) Atrial Fibrillation, Cardiomyopathy, Chronic Edema/Swelling, High Cholesterol, Hypertension Neurological: Yes Neuropathy Genitourinary: Yes Benign Prostatic Hyperpl, Renal Failure Gastrointestinal: Yes Gastroesophageal Reflux Musculoskeletal: No Endocrine: Yes (MORBID OBESITY) Diabetes, Insulin dep, Hypothyroidsim HEENT: No Cancer: No Psychosocial: Yes Depression Integumentary: No Blood Disorders: No Family Medical History ADMITTED 03/09/20 FOR MRSA BACTEREMIA WITH SEPSIS, DX WITH RENAL FAILURE AND WAS TO START DIALYSIS 03/29/20 Physical Exam Vital Signs Vital Signs - First Documented 04/16/20 14:52 Temp 35.2 Pulse 112 Resp 18 B/P (MAP) 140/89 (106) Pulse Ox 96 Capillary Refill : Height, Weight, BMI Height: '" Weight: lbs. oz. kg; 30.00 BMI Method: General Appearance: No Apparent Distress, WD/WN Eyes: Bilateral Eye Normal Inspection, Bilateral Eye PERRL, Bilateral Eye EOMI Respiratory: No Accessory Muscle Use, No Respiratory Distress Gastrointestinal: Normal Bowel Sounds, Non Tender, Soft Neurologic/Psychiatric: Alert, Oriented x3 Skin: Normal Color, Warm/Dry, Other (Swelling both lower extremities and chronic brownish discoloration of the right lower extremity with little bit of weeping of serous fluid.) Focused Exam Lactate Level 04/16/20 15:10: Lactic Acid Level 1.10 Lactic Acid Level Laboratory Tests Test 04/16/20 15:10 Lactic Acid Level 1.10 MMOL/L (0.50-2.00) Progress/Results/Core Measures Suspected Sepsis SIRS Temperature: Pulse: Respiratory Rate: Laboratory Tests 04/16/20 15:10: White Blood Count 4.1L Blood Pressure / Mean: 04/16/20 15:10: Lactic Acid Level 1.10 Laboratory Tests 04/16/20 15:10: Creatinine 3.01H, Platelet Count 197, Total Bilirubin 1.3H Results/Orders Lab Results Laboratory Tests Test 04/16/20 15:10 Range/Units White Blood Count 4.1 L 4.3-11.0 10^3/uL Red Blood Count 2.84 L 4.30-5.52 10^6/uL Hemoglobin 7.8 L 13.3-17.7 g/dL Hematocrit 27 L 40-54 % Mean Corpuscular Volume 94 80-99 fL Mean Corpuscular Hemoglobin 28 25-34 pg Mean Corpuscular Hemoglobin Concent 29 L 32-36 g/dL Red Cell Distribution Width 18.4 H 10.0-14.5 % Platelet Count 197 130-400 10^3/uL Mean Platelet Volume 9.8 9.0-12.2 fL Immature Granulocyte % (Auto) 1 % Neutrophils (%) (Auto) 71 42-75 % Lymphocytes (%) (Auto) 14 12-44 % Monocytes (%) (Auto) 9 0-12 % Eosinophils (%) (Auto) 5 0-10 % Basophils (%) (Auto) 1 0-10 % Neutrophils # (Auto) 2.9 1.8-7.8 10^3/uL Lymphocytes # (Auto) 0.6 L 1.0-4.0 10^3/uL Monocytes # (Auto) 0.4 0.0-1.0 10^3/uL Eosinophils # (Auto) 0.2 0.0-0.3 10^3/uL Basophils # (Auto) 0.0 0.0-0.1 10^3/uL Immature Granulocyte # (Auto) 0.0 0.0-0.1 10^3/uL Sodium Level 139 135-145 MMOL/L Potassium Level 3.5 L 3.6-5.0 MMOL/L Chloride Level 97 L 98-107 MMOL/L Carbon Dioxide Level 28 21-32 MMOL/L Anion Gap 14 5-14 MMOL/L Blood Urea Nitrogen 11 7-18 MG/DL Creatinine 3.01 H 0.60-1.30 MG/DL Estimat Glomerular Filtration Rate 21 BUN/Creatinine Ratio 4 Glucose Level 93 70-105 MG/DL Lactic Acid Level 1.10 0.50-2.00 MMOL/L Calcium Level 8.4 L 8.5-10.1 MG/DL Corrected Calcium 8.8 8.5-10.1 MG/DL Total Bilirubin 1.3 H 0.1-1.0 MG/DL Aspartate Amino Transf (AST/SGOT) 17 5-34 U/L Alanine Aminotransferase (ALT/SGPT) 10 0-55 U/L Alkaline Phosphatase 50 40-136 U/L B-Type Natriuretic Peptide 2644.2 H <100.0 PG/ML Total Protein 7.1 6.4-8.2 GM/DL Albumin 3.5 3.2-4.5 GM/DL My Orders Orders - DEV LANE APRN Ed Iv/Invasive Line Start (04/16/20 14:36) Cbc With Automated Diff (04/16/20 14:37) Comprehensive Metabolic Panel (04/16/20 14:37) BNP (04/16/20 14:37) Chest 1 View, Ap/Pa Only (04/16/20 14:37) Blood Culture (04/16/20 14:37) Lactic Acid Analyzer (04/16/20 14:37) Vital Signs/I&O 04/16/20 04/16/20 04/16/20 14:52 15:22 15:52 Temp 35.2 35.5 Pulse 112 110 100 Resp 18 18 18 B/P (MAP) 140/89 (106) 140/89 140/89 Pulse Ox 96 96 96 Capillary Refill : Departure Communication (Admissions) 1535-awaiting blood results, ultrasound with the patient for bilateral lower extremity ultrasound. Patient states he does not want to get them because it requires taking off his pants. He does not understand why he would need to have an ultrasound of his groin with his lower legs that are swelling. I educated him on the reasons why. He states now he just wants to go home, does not want to wait for his work-up. He wants to go to surgery to get his vancomycin infusion and go home because he is tired. He understands the risks of leaving against advice. Impression Primary Impression: Pedal edema Additional Impression: Left against medical advice Disposition: HOME, SELF-CARE Condition: Stable Departure-Patient Inst. Referrals: DESYI SWAIN DO (PCP/Family) Primary Care Physician DEV LANE APRN Apr 16, 2020 14:41
[2020-04-16 15:31] LABS: ALBUMIN 3.5 GM/DL (3.2-4.5); POTASSIUM 3.5 MMOL/L (3.6-5.0)
[2020-04-16 15:33] LABS: CALCIUM 8.4 MG/DL (8.5-10.1)
[2020-04-16 15:34] LABS: TOTAL PROTEIN 7.1 GM/DL (6.4-8.2)
[2020-04-16 15:36] LABS: BILIRUBIN,TOTAL 1.3 MG/DL (0.1-1.0)
[2020-04-16 15:37] LABS: BASOPHILS % (AUTO) 1 % (0-10); CREATININE SERUM 3.01 MG/DL (0.60-1.30); EOSINOPHILS # (AUTO) 0.2 10^3/uL (0.0-0.3); EOSINOPHILS % (AUTO) 5 % (0-10); HEMATOCRIT 27 % (40-54); HEMOGLOBIN 7.8 g/dL (13.3-17.7); LYMPHOCYTES # (AUTO) 0.6 10^3/uL (1.0-4.0); LYMPHOCYTES % (AUTO) 14 % (12-44); MEAN CORPUSCULAR HEMOGLOBIN 28 pg (25-34); MEAN CORPUSCULAR HGB CONC 29 g/dL (32-36); MEAN CORPUSCULAR VOLUME 94 fL (80-99); MEAN PLATELET VOLUME 9.8 fL (9.0-12.2); MONOCYTES # (AUTO) 0.4 10^3/uL (0.0-1.0); MONOCYTES % (AUTO) 9 % (0-12); NEUTROPHILS # (AUTO) 2.9 10^3/uL (1.8-7.8); NEUTROPHILS % (AUTO) 71 % (42-75); PLATELET COUNT 197 10^3/uL (130-400); WHITE BLOOD COUNT 4.1 10^3/uL (4.3-11.0)
--- NOTE | 2020-04-16 15:44 | Diagnostic Imaging Report ---
INDICATION: Dextrocardia. TIME OF EXAM: 03:36 p.m. COMPARISON: Correlation is made with prior chest from 03/29/2020. FINDINGS: Dextrocardia is again noted. Cardiac pacer is in place. Right-sided dialysis line has been placed. There is no pneumothorax. Infiltrate in the left base has shown some improved aeration. There appears to be some continued minimal left pleural fluid. IMPRESSION: Overall improved aeration in the left base when compared with examination from 03/29/2020. Dictated by: Dictated on workstation # [id number]
[2020-04-16 15:52] VITALS: BP 140/89
== END 2020-04-16 15:58 | disposition left against medical advice (07) ==
LOC: EDUNIT# 14:23 → ER 14:26
DX: R60.9 Edema, unspecified (principal); I10 Essential (primary) hypertension; K21.9 Gastro-esophageal reflux disease without esophagitis; E03.9 Hypothyroidism, unspecified; E78.00 Pure hypercholesterolemia, unspecified; E66.01 Morbid (severe) obesity due to excess calories; I48.91 Unspecified atrial fibrillation; F32.9 Major depressive disorder, single episode, unspecified; Z88.5 Allergy status to narcotic agent; Z79.890 Hormone replacement therapy; Z95.0 Presence of cardiac pacemaker; Z68.30 Body mass index [BMI] 30.0-30.9, adult
CPT/HCPCS: 36415; 71045; 80053; 83605; 83880; 85025; 87040

== ENCOUNTER 2020-10-27 15:57 | Emergency (ER) | payer MEDICARE, MEDICAID ==
[~2020-10-27] VITALS: Ht 182.9 cm; Wt 133.4 kg
[~2020-10-27 15:57] MED LIST changes: +LORA-53 PO; -LORA-714 PO
--- NOTE | 2020-10-27 16:10 | ED General ---
General Chief Complaint: Altered Mental Status Stated Complaint: AMS History of Present Illness Date Seen by Provider: October 27, 2020 Time Seen by Provider: 16:00 Initial Comments 65-year-old male presents via EMS for mental status change. Patient's brother called EMS as he was concerned that his brother had not had dialysis for the past month, he normally dialyzes in [place]. Patient refused EMS transport, police were called as his living situation was severely uninhabitable and police stated if he did not go to the hospital they would take him in custody and called DFS. He complied and came in with EMS. When asked how he is doing, patient states "I am not doing so well". Admits he has not had dialysis in some time, denies any chest pain, shortness of air, nausea, vomiting or abdominal pain. Does admit to generalized weakness and generalized malaise. States he is still taking blood pressure and his diabetes medications. His primary doctor is Dr. SWAIN. Asked about his resuscitation status and patient states that he does not want CPR, intubation or life support. He seems coherent to make this decision. Allergies and Home Medications Allergies Coded Allergies: oxycodone (Verified Allergy, Intermediate, 03/09/19) Home Medications Cholecalciferol (Vitamin D3) 1,250 Mcg Capsule, 1,250 MCG PO EVERY 2 WEEKS, (Reported) Dabigatran Etexilate Mesylate 150 Mg Capsule, 150 MG PO BID, (Reported) Diltiazem HCl 240 Mg Cap.er.24h, 240 MG PO DAILY Prescribed by: ABRAHAM ONEAL on 03/16/20 1120 Duloxetine HCl 60 Mg Capsule.dr, 60 MG PO DAILY, (Reported) Exenatide Microspheres 2 Mg/0.65 Ml Pen.injctr, 2 MG SC TUES, (Reported) Fenofibrate Nanocrystallized 145 Mg Tablet, 145 MG PO DAILY, (Reported) Furosemide 20 Mg Tablet, 40 MG PO DAILY, (Reported) TAKES 2 (20MG) TABS Furosemide 20 Mg Tablet, 40 MG PO 1800 PRN for WEIGHTGAIN OVER 2 LB, (Reported) Gabapentin 100 Mg Capsule, 100 MG PO TID, (Reported) Levothyroxine Sodium 50 Mcg Tablet, 50 MCG PO DAILY, (Reported) Loratadine 10 Mg Tablet, 10 MG PO DAILY, (Reported) Metoprolol Succinate 25 Mg Tab.er.24h, 25 MG PO DAILY, (Reported) Omeprazole 20 Mg Capsule.dr, 20 MG PO DAILY, (Reported) Sacubitril/Valsartan 1 Each Tablet, 1 EA PO DAILY, (Reported) Tamsulosin HCl 0.4 Mg Cap, 0.4 MG PO 1800, (Reported) Tramadol HCl 50 Mg Tablet, 50 MG PO BID PRN for PAIN-MODERATE (5-7), (Reported) Vancomycin HCl in Water 1.5 Gm/15 Ml Vial, 1.5 GM IV DAILY Prescribed by: ABRAHAM ONEAL on 03/16/20 1120 Patient Home Medication List Home Medication List Reviewed: Yes Review of Systems Review of Systems Constitutional: No chills, No fever; malaise, weakness Respiratory: No cough, No short of breath Cardiovascular: No chest pain; edema; No palpitations Gastrointestinal: No abdominal pain; loss of appetite; No nausea, No vomiting Genitourinary: decreased output Skin: No change in color, No lesions, No lumps, No rash Psychiatric/Neurological: Denies Numbness, Denies Paresthesia; Weakness Past Fwkacsp-Qnvscl-Vxslfp Hx Past Med/Social Hx: Reviewed Nursing Past Med/Soc Hx Patient Social History Type Used: Cigarettes Recent Hopitalizations: No Seasonal Allergies Seasonal Allergies: Yes Past Medical History Surgeries: Yes (Pacemaker) Pacemaker Respiratory: Yes (O2 PRN) Cardiac: Yes (Dextrocardia, Heart Failure) Atrial Fibrillation, Cardiomyopathy, Chronic Edema/Swelling, High Cholesterol, Hypertension Neurological: Yes Neuropathy Genitourinary: Yes Benign Prostatic Hyperpl, Renal Failure Gastrointestinal: Yes Gastroesophageal Reflux Musculoskeletal: No Endocrine: Yes (MORBID OBESITY) Diabetes, Insulin dep, Hypothyroidsim HEENT: No Cancer: No Psychosocial: Yes Depression Integumentary: No Blood Disorders: No Family Medical History ADMITTED 03/09/20 FOR MRSA BACTEREMIA WITH SEPSIS, DX WITH RENAL FAILURE AND WAS TO START DIALYSIS 03/29/20 Physical Exam Vital Signs Vital Signs - First Documented 10/27/20 16:00 Temp 36.2 Pulse 103 Resp 21 B/P (MAP) 116/79 (91) Pulse Ox 93 O2 Delivery Room Air Capillary Refill : Height, Weight, BMI Height: '" Weight: lbs. oz. kg; 33.00 BMI Method: General Appearance: No Apparent Distress, Chronically ill, Other (severely dirty and disheveled. Soiled skin and extremities) Eyes: Bilateral Eye PERRL, Bilateral Eye EOMI Neck: Normal Inspection, Non Tender Respiratory: Chest Non Tender, Lungs Clear, No Accessory Muscle Use, No Respiratory Distress Cardiovascular: Regular Rate, Rhythm, No JVD, Normal Peripheral Pulses Gastrointestinal: Non Tender, Soft, Distended; No Guarding Back: No CVA Tenderness, No Vertebral Tenderness Extremity: Normal Capillary Refill, Non Tender Neurologic/Psychiatric: Alert, Oriented x3, No Motor/Sensory Deficits Skin: Normal Color, Warm/Dry Focused Exam Lactate Level 10/27/20 15:09: Lactic Acid Level 1.24 Lactic Acid Level Laboratory Tests Test 10/27/20 15:09 Lactic Acid Level 1.24 MMOL/L (0.50-2.00) Progress/Results/Core Measures Suspected Sepsis SIRS Temperature: Pulse: Respiratory Rate: Laboratory Tests 10/27/20 15:09: White Blood Count 1.5L Blood Pressure / Mean: 10/27/20 15:09: Lactic Acid Level 1.24 Laboratory Tests 10/27/20 15:09: Creatinine 6.42H, Platelet Count 57L, Total Bilirubin 2.3H Results/Orders Lab Results Laboratory Tests Test 10/27/20 15:09 10/27/20 16:15 10/27/20 16:22 10/27/20 16:23 Range/Units White Blood Count 1.5 L 4.3-11.0 10^3/uL Red Blood Count 3.36 L 4.35-5.85 10^6/uL Hemoglobin 9.8 L 13.3-17.7 G/DL Hematocrit 29 L 40-54 % Mean Corpuscular Volume 88 80-99 FL Mean Corpuscular Hemoglobin 29 25-34 PG Mean Corpuscular Hemoglobin Concent 33 32-36 G/DL Red Cell Distribution Width 17.2 H 10.0-14.5 % Platelet Count 57 L 130-400 10^3/uL Mean Platelet Volume 10.0 7.4-10.4 FL Immature Granulocyte % (Auto) 0 % Neutrophils (%) (Auto) 60 42-75 % Lymphocytes (%) (Auto) 23 12-44 % Monocytes (%) (Auto) 12 0-12 % Eosinophils (%) (Auto) 3 0-10 % Basophils (%) (Auto) 1 0-10 % Neutrophils # (Auto) 0.9 L 1.8-7.8 X 10^3 Lymphocytes # (Auto) 0.3 L 1.0-4.0 X 10^3 Monocytes # (Auto) 0.2 0.0-1.0 X 10^3 Eosinophils # (Auto) 0.1 0.0-0.3 10^3/uL Basophils # (Auto) 0.0 0.0-0.1 10^3/uL Immature Granulocyte # (Auto) 0.0 0.0-0.1 10^3/uL Percent Immature Platelet Fraction 2.2 0.0-7.6 % Sodium Level 128 L 135-145 MMOL/L Potassium Level 4.2 3.6-5.0 MMOL/L Chloride Level 91 L 98-107 MMOL/L Carbon Dioxide Level 23 21-32 MMOL/L Anion Gap 14 5-14 MMOL/L Blood Urea Nitrogen 87 H 7-18 MG/DL Creatinine 6.42 H 0.60-1.30 MG/DL Estimat Glomerular Filtration Rate 9 BUN/Creatinine Ratio 14 Glucose Level 283 H 70-105 MG/DL Lactic Acid Level 1.24 0.50-2.00 MMOL/L Calcium Level 8.4 L 8.5-10.1 MG/DL Corrected Calcium 9.3 8.5-10.1 MG/DL Magnesium Level 2.1 1.6-2.4 MG/DL Total Bilirubin 2.3 H 0.1-1.0 MG/DL Aspartate Amino Transf (AST/SGOT) 36 H 5-34 U/L Alanine Aminotransferase (ALT/SGPT) 24 0-55 U/L Alkaline Phosphatase 184 H 40-136 U/L Troponin I < 0.30 <0.30 NG/ML Total Protein 7.0 6.4-8.2 GM/DL Albumin 2.9 L 3.2-4.5 GM/DL Serum Alcohol < 10 <10 MG/DL Urine Color YELLOW Urine Clarity SLT CLOUDY Urine pH 6.0 5-9 Urine Specific [place] 1.020 1.016-1.022 Urine Protein 2+ H NEGATIVE Urine Glucose (UA) TRACE H NEGATIVE Urine Ketones NEGATIVE NEGATIVE Urine Nitrite NEGATIVE NEGATIVE Urine Bilirubin NEGATIVE NEGATIVE Urine Urobilinogen 1.0 < = 1.0 MG/DL Urine Leukocyte Esterase NEGATIVE NEGATIVE Urine RBC (Auto) 1+ H NEGATIVE Urine RBC 2-5 H /HPF Urine WBC 0-2 /HPF Urine Squamous Epithelial Cells NONE /HPF Urine Crystals PRESENT H /LPF Urine Amorphous Sediment FEW JUNITO URATES H /LPF Urine Bacteria FEW H /HPF Urine Casts NONE /LPF Urine Mucus NEGATIVE /LPF Urine Culture Indicated YES Urine Opiates Screen NEGATIVE NEGATIVE Urine Oxycodone Screen NEGATIVE NEGATIVE Urine Methadone Screen NEGATIVE NEGATIVE Urine Propoxyphene Screen NEGATIVE NEGATIVE Urine Barbiturates Screen NEGATIVE NEGATIVE Ur Tricyclic Antidepressants Screen NEGATIVE NEGATIVE Urine Phencyclidine Screen NEGATIVE NEGATIVE Urine Amphetamines Screen NEGATIVE NEGATIVE Urine Methamphetamines Screen NEGATIVE NEGATIVE Urine Benzodiazepines Screen NEGATIVE NEGATIVE Urine Cocaine Screen NEGATIVE NEGATIVE Urine Cannabinoids Screen NEGATIVE NEGATIVE Blood Gas Puncture Site RT RADIAL Blood Gas Patient Temperature 36.2 Arterial Blood pH 7.48 H 7.37-7.43 Arterial Blood Partial Pressure CO2 33 L 35-45 MMHG Arterial Blood Partial Pressure O2 62 L 79-93 MMHG Arterial Blood HCO3 25 23-27 MMOL/L Arterial Blood Total CO2 25.6 21.0-31.0 MMOL/L Arterial Blood Oxygen Saturation 93 L 94-100 % Arterial Blood Base Excess 1.5 -2.5-2.5 MMOL/L Devyn Test OK Blood Gas Ventilator Setting NO Blood Gas Inspired Oxygen ROOM AIR My Orders Orders - NICOLESTREBECCA DECKER DO Ed Iv/Invasive Line Start (10/27/20 16:11) Ekg Tracing (10/27/20 16:11) Chest 1 View Ap/Pa Only (10/27/20 16:11) Alcohol (10/27/20 16:11) Cbc With Automated Diff (10/27/20 16:11) Comprehensive Metabolic Panel (10/27/20 16:11) Lactic Acid Analyzer (10/27/20 16:11) Magnesium (10/27/20 16:11) Urinalysis (10/27/20 16:11) Troponin I Fs (10/27/20 16:11) Arterial Blood Gas (10/27/20 16:11) Blood Culture (10/27/20 16:11) Drug Screen Stat (Urine) (10/27/20 16:11) Blood Culture (10/27/20 16:22) Ammonia (10/27/20 16:35) Urine Culture (10/27/20 16:15) Vital Signs/I&O 10/27/20 10/27/20 16:00 18:16 Temp 36.2 Pulse 103 105 Resp B/P (MAP) 116/79 (91) 122/51 Pulse Ox 93 94 O2 Delivery Room Air Room Air Capillary Refill : Progress Note : Progress Note 1715- called [facility] for transfer. Pt reluctant to do anything, his brother is here supporting admission/ medical care. 1800- after multiple conversations with patient and his (supportive) brother, patient signed out AMA, refusing admission/ transfer to [facility] for dialysis and further medical care. Aware that his condition is life threatening and he says he is not suicidal, but does not want to do dialysis any longer. Advised to follow up with his PCP, Polo Swain tomorrow. His brother is here to transport him home and will help getting him Home health care. Will call his PCP's office tomorrow to establish eval for home care and services. Diagnostic Imaging Diagonstic Imaging: Xray Comments Date of Exam:10/27/20 CHEST 1 VIEW AP/PA ONLY INDICATION: Altered mental status. Frontal chest obtained at 04:22 p.m. and compared 04/16/2020 The patient has dextrocardia. There is no change in the pacemaker device or dual-lumen dialysis catheter when compared to the prior study. There is prominent central vascular congestion which appears similar to the prior study. There is no new consolidation or pneumothorax. There is a small amount of pleural fluid in the left costophrenic angle. IMPRESSION: Prominent cardiomegaly and central vascular congestion, appearing chronic. Minimal left pleural effusion. No new consolidation or pneumothorax. Dictated on workstation # [id number] Dict: 10/27/20 1637 Trans: 10/27/20 1640 [facility] [id number] Interpreted by: ERIKA ALEXANDER MD Electronically signed by: Departure Impression Primary Impression: Renal failure (ARF), acute on chronic Qualified Codes: N17.9 - Acute kidney failure, unspecified; N18.9 - Chronic kidney disease, unspecified Additional Impressions: Pancytopenia CHF (congestive heart failure) Qualified Codes: I50.9 - Heart failure, unspecified A-fib Qualified Codes: I48.91 - Unspecified atrial fibrillation Disposition: 07 AGAINST MEDICAL ADVICE Condition: Unchanged Departure-Patient Inst. Decision time for Depature: 18:08 Referrals: KELLENBERGER,DEYSI D DO (PCP/Family) Primary Care Physician Patient Instructions: Chronic Kidney Disease (DC) Add. Discharge Instructions: Call Dr Swain's office to set up a follow up appointment in 1 to 3 days. You should call 911 for any worsening of your symptoms. Your condition is life threatening and will get worse if you do not seek medical care soon. Your doctor's office will be contacted to arrange for home health services. All discharge instructions reviewed with patient and/or family. Voiced understanding. REBECCA LOPEZ DO October 27, 2020 16:10
[2020-10-27 16:25] LABS: HEMATOCRIT 29 % (40-54); HEMOGLOBIN 9.8 G/DL (13.3-17.7); LYMPHOCYTES % (AUTO) 23 % (12-44); MEAN CORPUSCULAR HEMOGLOBIN 29 PG (25-34); MEAN CORPUSCULAR HGB CONC 33 G/DL (32-36); MEAN CORPUSCULAR VOLUME 88 FL (80-99); MONOCYTES % (AUTO) 12 % (0-12); NEUTROPHILS % (AUTO) 60 % (42-75); PLATELET COUNT 57 10^3/uL (130-400); WHITE BLOOD COUNT 1.5 10^3/uL (4.3-11.0)
[2020-10-27 16:26] LABS: BASOPHILS % (AUTO) 1 % (0-10); EOSINOPHILS # (AUTO) 0.1 10^3/uL (0.0-0.3); EOSINOPHILS % (AUTO) 3 % (0-10); LYMPHOCYTES # (AUTO) 0.3 X 10^3 (1.0-4.0); MONOCYTES # (AUTO) 0.2 X 10^3 (0.0-1.0); NEUTROPHILS # (AUTO) 0.9 X 10^3 (1.8-7.8)
[2020-10-27 16:37] LABS: BUN/CREATININE RATIO 14; CALCIUM 8.4 MG/DL (8.5-10.1); CARBON DIOXIDE 23 MMOL/L (21-32); CHLORIDE 91 MMOL/L (98-107); CREATININE SERUM 6.42 MG/DL (0.60-1.30); GFR ESTIMATED 9; GLUCOSE 283 MG/DL (70-105); POTASSIUM 4.2 MMOL/L (3.6-5.0); SODIUM 128 MMOL/L (135-145)
[2020-10-27 16:38] LABS: ALANINE AMINOTRANSFERASE 24 U/L (0-55); ALBUMIN 2.9 GM/DL (3.2-4.5); ALKALINE PHOSPHATASE 184 U/L (40-136); BILIRUBIN,TOTAL 2.3 MG/DL (0.1-1.0); MAGNESIUM 2.1 MG/DL (1.6-2.4)
--- NOTE | 2020-10-27 16:41 | Diagnostic Imaging Report ---
INDICATION: Altered mental status. Frontal chest obtained at 04:22 p.m. and compared 04/16/2020 The patient has dextrocardia. There is no change in the pacemaker device or dual-lumen dialysis catheter when compared to the prior study. There is prominent central vascular congestion which appears similar to the prior study. There is no new consolidation or pneumothorax. There is a small amount of pleural fluid in the left costophrenic angle. IMPRESSION: Prominent cardiomegaly and central vascular congestion, appearing chronic. Minimal left pleural effusion. No new consolidation or pneumothorax. Dictated by: Dictated on workstation # [id number]
[2020-10-27 16:52] LABS: CLARITY,URINE SLT CLOUDY; COLOR,URINE YELLOW
[2020-10-27 16:53] LABS: AMORPHOUS SEDIMENT,UR FEW AMOR URATES /LPF; BACTERIA,URINE FEW /HPF; BILIRUBIN,URINE NEGATIVE (NEGATIVE); GLUCOSE, URINE (UA) TRACE (NEGATIVE); KETONES,URINE NEGATIVE (NEGATIVE); LEUKOCYTE ESTERASE ,URINE NEGATIVE (NEGATIVE); NITRITE,URINE NEGATIVE (NEGATIVE); PROTEIN,URINE 2+ (NEGATIVE); WBC,URINE 0-2 /HPF
[2020-10-27 16:54] LABS: AMPHETAMINE SCREEN, URINE NEGATIVE (NEGATIVE); BARBITURATE SCREEN URINE NEGATIVE (NEGATIVE); BENZODIAZEPINES SCREEN URINE NEGATIVE (NEGATIVE); CANNABINOID SCREEN, URINE NEGATIVE (NEGATIVE); COCAINE SCREEN URINE NEGATIVE (NEGATIVE); METHADONE STAT NEGATIVE (NEGATIVE); METHAMPHETAMINE SCREEN URINE S NEGATIVE (NEGATIVE); OPIATE SCREEN URINE NEGATIVE (NEGATIVE); OXYCODONE STAT NEGATIVE (NEGATIVE); PROPOXYPHENE STAT NEGATIVE (NEGATIVE); TRICYCLIC ANTIDEPRESSANTS SCRE NEGATIVE (NEGATIVE)
[2020-10-27 17:36] LABS: ABG BASE EXCESS 1.5 MMOL/L (-2.5-2.5); ABG OXYGEN SATURATION 93 % (94-100); ABG PCO2 33 MMHG (35-45); ABG PH 7.48 (7.37-7.43); ABG PO2 62 MMHG (79-93); ABG TCO2 25.6 MMOL/L (21.0-31.0)
[2020-10-27 17:37] LABS: ALLENS TEST OK; INSPIRED O2 ROOM AIR; PATIENT TEMP 36.2; VENTILATOR NO
[2020-10-27 18:16] VITALS: BP 122/51
== END 2020-10-27 18:34 | disposition left against medical advice (07) ==
LOC: EDUNIT# 15:57 → ER FS 15:58
DX: N17.9 Acute kidney failure, unspecified (principal); I11.0 Hypertensive heart disease with heart failure; I50.9 Heart failure, unspecified; I48.91 Unspecified atrial fibrillation; D61.818 Other pancytopenia; E11.40 Type 2 diabetes mellitus with diabetic neuropathy, unspecified; F32.9 Major depressive disorder, single episode, unspecified; E03.9 Hypothyroidism, unspecified; K21.9 Gastro-esophageal reflux disease without esophagitis; N40.0 Benign prostatic hyperplasia without lower urinary tract symptoms; E78.00 Pure hypercholesterolemia, unspecified; E66.01 Morbid (severe) obesity due to excess calories; Z95.0 Presence of cardiac pacemaker; Z68.33 Body mass index [BMI] 33.0-33.9, adult; Z88.5 Allergy status to narcotic agent; Z79.890 Hormone replacement therapy; Z79.899 Other long term (current) drug therapy
CPT/HCPCS: 36415; 71045; 80053; 80306; 80320; 81000; 82140; 82805; 83605; 83735; 84484; 85025; 87040; 87088; 93005

== ENCOUNTER 2020-10-29 02:14 | Emergency (ER) | payer MEDICARE, MEDICAID ==
[~2020-10-29] VITALS: Ht 185.5 cm; Wt 119.3 kg
--- NOTE | 2020-10-29 02:37 | ED General ---
General Chief Complaint: Chest Pain Stated Complaint: LT RIB PAIN Nursing Triage Note: Pt states left lower ribs started hurting around 1300 yesterday, pt seen 2 days agpo for altered loc, pt left ama, pt has refused dialysis the past month except 2 times Nursing Sepsis Screen: No Definite Risk Source of Information: Patient Exam Limitations: No Limitations History of Present Illness Date Seen by Provider: October 29, 2020 Time Seen by Provider: 02:20 Initial Comments Patient is a 65-year-old male with a history of atrial fibrillation, end-stage renal disease on hemodialysis who presents to the emergency department today with a chief complaint of left rib pain. Patient states his left ribs started hurting at around 1:00 earlier this afternoon. He denies any traumas or falls. Patient states he attempted to take some Tylenol at around 2 PM for the pain but it did not seem to help. He does have tramadol at home but states that it does not do anything for him and he cannot take hydrocodone because it does not work either. Patient states that the pain sharp and aching. Nothing seems to make it any better other than holding onto that left side. He denies feeling really short of breath. His last dialysis was greater than a week ago. He is only dialyzed 2 or 3 times this whole entire month. He denies any fevers or chills or productive cough. No nausea vomiting or diarrhea. He does complain of feeling generally weak. He states that he has a hard time sleeping. Patient dialyzes at [facility] in [place]. He has had his Covid vaccinations. All other review of systems reviewed and negative except as stated above. Timing/Duration: 12 Hours Severity: Severe Associated Systoms: Weakness (Generalized weakness) Allergies and Home Medications Allergies Coded Allergies: oxycodone (Verified Allergy, Intermediate, 03/09/19) Home Medications Cholecalciferol (Vitamin D3) 1,250 Mcg Capsule, 1,250 MCG PO EVERY 2 WEEKS, (Reported) Dabigatran Etexilate Mesylate 150 Mg Capsule, 150 MG PO BID, (Reported) Diltiazem HCl 240 Mg Cap.er.24h, 240 MG PO DAILY Prescribed by: ABRAHAM ONEAL on 03/16/20 1120 Duloxetine HCl 60 Mg Capsule.dr, 60 MG PO DAILY, (Reported) Exenatide Microspheres 2 Mg/0.65 Ml Pen.injctr, 2 MG SC TUES, (Reported) Fenofibrate Nanocrystallized 145 Mg Tablet, 145 MG PO DAILY, (Reported) Furosemide 20 Mg Tablet, 40 MG PO DAILY, (Reported) TAKES 2 (20MG) TABS Furosemide 20 Mg Tablet, 40 MG PO 1800 PRN for WEIGHTGAIN OVER 2 LB, (Reported) Gabapentin 100 Mg Capsule, 100 MG PO TID, (Reported) Levothyroxine Sodium 50 Mcg Tablet, 50 MCG PO DAILY, (Reported) Loratadine 10 Mg Tablet, 10 MG PO DAILY, (Reported) Metoprolol Succinate 25 Mg Tab.er.24h, 25 MG PO DAILY, (Reported) Omeprazole 20 Mg Capsule.dr, 20 MG PO DAILY, (Reported) Sacubitril/Valsartan 1 Each Tablet, 1 EA PO DAILY, (Reported) Tamsulosin HCl 0.4 Mg Cap, 0.4 MG PO 1800, (Reported) Tramadol HCl 50 Mg Tablet, 50 MG PO BID PRN for PAIN-MODERATE (5-7), (Reported) Vancomycin HCl in Water 1.5 Gm/15 Ml Vial, 1.5 GM IV DAILY Prescribed by: ABRAHAM ONEAL on 03/16/20 1120 Patient Home Medication List Home Medication List Reviewed: Yes Review of Systems Review of Systems Constitutional: see HPI EENTM: no symptoms reported Respiratory: other (Left-sided rib pain) Cardiovascular: no symptoms reported Gastrointestinal: no symptoms reported Genitourinary: no symptoms reported Musculoskeletal: no symptoms reported Skin: no symptoms reported Psychiatric/Neurological: No Symptoms Reported All Other Systems Reviewed Negative Unless Noted: Yes Past Jewgxec-Npvliu-Abcyrf Hx Patient Social History Alcohol Use: Denies Use Smoking Status: Current Everyday Smoker Type Used: Cigarettes 2nd Hand Smoke Exposure: No Recent Infectious Disease Expo: No Recent Hopitalizations: No Seasonal Allergies Seasonal Allergies: Yes Past Medical History Surgeries: Yes (Pacemaker) Pacemaker Respiratory: Yes (O2 PRN) Cardiac: Yes (Dextrocardia, Heart Failure) Atrial Fibrillation, Cardiomyopathy, Chronic Edema/Swelling, High Cholesterol, Hypertension Neurological: Yes Neuropathy Genitourinary: Yes Benign Prostatic Hyperpl, Renal Failure Gastrointestinal: Yes Gastroesophageal Reflux Musculoskeletal: No Endocrine: Yes (MORBID OBESITY) Diabetes, Insulin dep, Hypothyroidsim HEENT: No Cancer: No Psychosocial: Yes Depression Integumentary: No Blood Disorders: No Family Medical History ADMITTED 03/09/20 FOR MRSA BACTEREMIA WITH SEPSIS, DX WITH RENAL FAILURE AND WAS TO START DIALYSIS 03/29/20 Physical Exam Vital Signs Vital Signs - First Documented 10/29/20 02:24 Temp 36.3 Pulse 105 Resp 16 B/P (MAP) 109/63 (78) Pulse Ox 97 O2 Delivery Room Air Capillary Refill : Less Than 3 Seconds Height, Weight, BMI Height: '" Weight: lbs. oz. kg; 34.00 BMI Method: General Appearance: No Apparent Distress, Chronically ill, Other (malodorous, disheveled and dirty) Eyes: Bilateral Eye Normal Inspection, Bilateral Eye PERRL, Bilateral Eye EOMI HEENT: PERRL/EOMI Respiratory: Chest Non Tender, Lungs Clear, Normal Breath Sounds, No Accessory Muscle Use, No Respiratory Distress Cardiovascular: Diastolic Murmur, Systolic Murmur, Irregularly Irregular Gastrointestinal: Normal Bowel Sounds, Non Tender, Soft Extremity: Normal Capillary Refill, Normal Inspection, Normal Range of Motion Neurologic/Psychiatric: Alert, Oriented x3, No Motor/Sensory Deficits, Normal Mood/Affect, Depressed Affect Skin: Normal Color, Warm/Dry, Other (Multiple ecchymosis over the anterior abdominal wall secondary to the patient being on anticoagulants and insulin shots) Progress/Results/Core Measures Suspected Sepsis Recent Fever Within 48 Hours: No Infection Criteria Present: None New/Unexplained Altered Menta: No Sepsis Screen: No Definite Risk SIRS Temperature: Pulse: 105 Respiratory Rate: 16 Blood Pressure 109 /63 Mean: 78 Laboratory Tests 10/29/20 02:32: Creatinine 6.81H Results/Orders Lab Results Laboratory Tests Test 10/29/20 02:32 Range/Units Sodium Level 126 L 135-145 MMOL/L Potassium Level 4.4 3.6-5.0 MMOL/L Chloride Level 88 L 98-107 MMOL/L Carbon Dioxide Level 23 21-32 MMOL/L Anion Gap 15 H 5-14 MMOL/L Blood Urea Nitrogen 95 H 7-18 MG/DL Creatinine 6.81 H 0.60-1.30 MG/DL Estimat Glomerular Filtration Rate 8 BUN/Creatinine Ratio 14 Glucose Level 176 H 70-105 MG/DL Calcium Level 8.3 L 8.5-10.1 MG/DL My Orders Orders - VIOLETA HARRY MD Chest 1 View Ap/Pa Only (10/29/20 02:30) Basic Metabolic Panel (10/29/20 02:32) Acetaminophen Tablet (Tylenol Tablet) (10/29/20 02:45) Medications Given in ED Current Medications Medications Dose Ordered Sig/Stephen Route Start Time Stop Time Status Last Admin Dose Admin Acetaminophen 1,000 mg ONCE ONCE PO 10/29/20 02:45 10/29/20 02:46 DC 10/29/20 02:42 1,000 MG Vital Signs/I&O 10/29/20 02:24 Temp 36.3 Pulse 105 Resp 16 B/P (MAP) 109/63 (78) Pulse Ox 97 O2 Delivery Room Air Capillary Refill : Less Than 3 Seconds Blood Pressure Mean: 78 Progress Note : Time: 03:25 Progress Note Patient seen and evaluated, 65-year-old man with left-sided rib pain. Evaluation today includes a physical exam, chest x-ray single view, BMP. Patient is found to be quite hyponatremic with a sodium of 126. This is down a couple of points from previous visit in the last week. Patient's chest x-ray shows a little increased pulmonary vascular congestion centrally. He has a very small left-sided pleural effusion. No obvious rib abnormalities. Patient is strongly encouraged to do his dialysis this morning at 6 AM. He is advised to follow-up with his primary care physician. No clinical or objective findings to warrant further evaluation from the emergency department. All questions are sought and answered. Patient is stable for discharge. Diagnostic Imaging Diagonstic Imaging: Xray Plain Films/CT/US/NM/MRI: chest Comments dextrocardia, pacemaker; mild increased central pulmonary vascular congestion, small left pleural effusion Departure Impression Primary Impression: Rib pain on left side Additional Impressions: End stage renal disease Hyponatremia Disposition: HOME, SELF-CARE Condition: Stable Departure-Patient Inst. Decision time for Depature: 03:24 Referrals: DEYSI SWAIN DO (PCP/Family) Primary Care Physician Patient Instructions: Chest Pain That Is Not Caused by the Heart (DC) Add. Discharge Instructions: Continue taking Tylenol 2 extra strength tablets, every 4-6 hours as needed for rib pain. Please get your dialysis done this morning at 6 AM as scheduled. Come back to the emergency room if you have any new, concerning or emergent symptoms. Continue to take your home daily medications as prescribed. VIOLETA HARRY MD October 29, 2020 02:37
[2020-10-29] MEDS: ACETAMINOPHEN 500 MG TAB (TYLENOL) PO ONE (02:42)
[2020-10-29 03:12] LABS: POTASSIUM 4.4 MMOL/L (3.6-5.0)
[2020-10-29 03:13] LABS: CALCIUM 8.3 MG/DL (8.5-10.1); CREATININE SERUM 6.81 MG/DL (0.60-1.30)
[2020-10-29 03:29] VITALS: BP 109/63
--- NOTE | 2020-10-29 06:30 | Diagnostic Imaging Report ---
CHEST 1 VIEW AP/PA ONLY Indication: Left rib pain Comparison: 10/27/2020 Findings: Dextrocardia is again noted. Right IJ dual-lumen hemodialysis catheter is stable in position. Small left pleural effusion. No pneumothorax. Patchy linear pulmonary opacities are unchanged. No displaced rib fracture on limited assessment. Impression: 1. No displaced rib fracture by portable radiography. 2. Chronic small left pleural effusion is unchanged. 3. Stable bibasilar pulmonary opacities likely on the basis of atelectasis or mild interstitial edema. Dictated by: Dictated on workstation # [id number]
== END 2020-10-29 03:29 | disposition home or self-care (01) ==
LOC: EDUNIT# 02:14 → ER FS 02:15
DX: J90 Pleural effusion, not elsewhere classified (principal); I13.2 Hypertensive heart and chronic kidney disease with heart failure and with stage 5 chronic kidney disease, or end stage renal disease; E11.22 Type 2 diabetes mellitus with diabetic chronic kidney disease; N18.6 End stage renal disease; I50.9 Heart failure, unspecified; E87.1 Hypo-osmolality and hyponatremia; R58 Hemorrhage, not elsewhere classified; E11.40 Type 2 diabetes mellitus with diabetic neuropathy, unspecified; I48.91 Unspecified atrial fibrillation; E78.00 Pure hypercholesterolemia, unspecified; E03.9 Hypothyroidism, unspecified; K21.9 Gastro-esophageal reflux disease without esophagitis; F32.9 Major depressive disorder, single episode, unspecified; N40.0 Benign prostatic hyperplasia without lower urinary tract symptoms; E66.01 Morbid (severe) obesity due to excess calories; F17.210 Nicotine dependence, cigarettes, uncomplicated; Z99.2 Dependence on renal dialysis; Z68.34 Body mass index [BMI] 34.0-34.9, adult; Z79.890 Hormone replacement therapy; Z79.01 Long term (current) use of anticoagulants; Z79.899 Other long term (current) drug therapy
CPT/HCPCS: 36415; 71045; 80048

== ENCOUNTER 2020-11-01 13:48 | Emergency (ER) | payer MEDICARE, MEDICAID ==
[2020-11-01 14:11] LABS: HEMATOCRIT 29 % (40-54); HEMOGLOBIN 9.5 G/DL (13.3-17.7); MEAN CORPUSCULAR HEMOGLOBIN 29 PG (25-34); MEAN CORPUSCULAR HGB CONC 33 G/DL (32-36); MEAN CORPUSCULAR VOLUME 88 FL (80-99); PLATELET COUNT 61 10^3/uL (130-400); WHITE BLOOD COUNT 1.2 10^3/uL (4.3-11.0)
[2020-11-01 14:12] LABS: CLARITY,URINE CLOUDY; COLOR,URINE YELLOW; GLUCOSE, URINE (UA) NEGATIVE (NEGATIVE); PH,URINE 5.5 (5-9); PROTEIN,URINE 1+ (NEGATIVE)
[2020-11-01 14:12] LABS: BASOPHILS % (AUTO) 0 % (0-10); EOSINOPHILS % (AUTO) 3 % (0-10); LYMPHOCYTES # (AUTO) 0.2 X 10^3 (1.0-4.0); LYMPHOCYTES % (AUTO) 19 % (12-44); MEAN PLATELET VOLUME 9.8 FL (7.4-10.4); MONOCYTES # (AUTO) 0.2 X 10^3 (0.0-1.0); MONOCYTES % (AUTO) 12 % (0-12); NEUTROPHILS # (AUTO) 0.8 X 10^3 (1.8-7.8); NEUTROPHILS % (AUTO) 66 % (42-75)
[2020-11-01 14:13] LABS: AMORPHOUS SEDIMENT,UR LARGE AMOR URATES /LPF; BACTERIA,URINE FEW /HPF; BILIRUBIN,URINE NEGATIVE (NEGATIVE); KETONES,URINE NEGATIVE (NEGATIVE); LEUKOCYTE ESTERASE ,URINE NEGATIVE (NEGATIVE); NITRITE,URINE NEGATIVE (NEGATIVE)
--- NOTE | 2020-11-01 14:13 | ED General ---
General Chief Complaint: General Problems/Pain Stated Complaint: WEAKNESS Nursing Triage Note: PT CALLED EMS FOR GENERALIZED WEAKNESS. HE HAS MISSED HIS LAST 3 DIALYSIS APPTS DUE TO REFUSAL AND HAS REFUSED ADMISSION TWICE IN THE PAST WEEK IN THIS ED. HE REPORTS HIS BROTHER MADE HIM COME IN TO GO TO [place]. Nursing Sepsis Screen: No Definite Risk History of Present Illness Date Seen by Provider: November 01, 2020 Time Seen by Provider: 14:00 Initial Comments 65-year-old male presents with generalized weakness. Patient is a known dialysis patient with extremely poor compliance. Patient brother reports that he has only been a dialysis once in the last month. Patient has refused admission and transfer for dialysis on both the the of this month. Patient reports he is here because his brother made him come in to "go to [place]" patient's brother states that he is too weak to get up out of bed in his chair. Allergies and Home Medications Allergies Coded Allergies: oxycodone (Verified Allergy, Intermediate, 03/09/19) Home Medications Cholecalciferol (Vitamin D3) 1,250 Mcg Capsule, 1,250 MCG PO EVERY 2 WEEKS, (Re ported) Dabigatran Etexilate Mesylate 150 Mg Capsule, 150 MG PO BID, (Reported) Diltiazem HCl 240 Mg Cap.er.24h, 240 MG PO DAILY Prescribed by: ABRAHAM ONEAL on 03/16/20 1120 Duloxetine HCl 60 Mg Capsule.dr, 60 MG PO DAILY, (Reported) Exenatide Microspheres 2 Mg/0.65 Ml Pen.injctr, 2 MG SC TU, (Reported) Fenofibrate Nanocrystallized 145 Mg Tablet, 145 MG PO DAILY, (Reported) Furosemide 20 Mg Tablet, 40 MG PO DAILY, (Reported) TAKES 2 (20MG) TABS Furosemide 20 Mg Tablet, 40 MG PO 1800 PRN for WEIGHTGAIN OVER 2 LB, (Reported) Gabapentin 100 Mg Capsule, 100 MG PO TID, (Reported) Levothyroxine Sodium 50 Mcg Tablet, 50 MCG PO DAILY, (Reported) Loratadine 10 Mg Tablet, 10 MG PO DAILY, (Reported) Metoprolol Succinate 25 Mg Tab.er.24h, 25 MG PO DAILY, (Reported) Omeprazole 20 Mg Capsule.dr, 20 MG PO DAILY, (Reported) Sacubitril/Valsartan 1 Each Tablet, 1 EA PO DAILY, (Reported) Tamsulosin HCl 0.4 Mg Cap, 0.4 MG PO 1800, (Reported) Tramadol HCl 50 Mg Tablet, 50 MG PO BID PRN for PAIN-MODERATE (5-7), (Reported) Vancomycin HCl in Water 1.5 Gm/15 Ml Vial, 1.5 GM IV DAILY Prescribed by: ABRAHAM ONEAL on 03/16/20 1120 Patient Home Medication List Home Medication List Reviewed: Yes Review of Systems Review of Systems Constitutional: malaise, weakness Respiratory: No cough, No short of breath Cardiovascular: No chest pain, No palpitations Gastrointestinal: No abdominal pain, No nausea, No vomiting Musculoskeletal: no symptoms reported Skin: no symptoms reported Past Ukrairl-Drwkhd-Imsxoa Hx Past Med/Social Hx: Reviewed Nursing Past Med/Soc Hx Patient Social History Alcohol Use: Denies Use Type Used: Cigarettes 2nd Hand Smoke Exposure: No Recent Infectious Disease Expo: No Recent Hopitalizations: No Seasonal Allergies Seasonal Allergies: Yes Past Medical History Surgeries: Yes (Pacemaker) Pacemaker Respiratory: Yes (O2 PRN) Cardiac: Yes (Dextrocardia, Heart Failure) Atrial Fibrillation, Cardiomyopathy, Chronic Edema/Swelling, High Cholesterol, H ypertension Neurological: Yes Neuropathy Genitourinary: Yes Benign Prostatic Hyperpl, Renal Failure Gastrointestinal: Yes Gastroesophageal Reflux Musculoskeletal: No Endocrine: Yes (MORBID OBESITY) Diabetes, Insulin dep, Hypothyroidsim HEENT: No Cancer: No Psychosocial: Yes Depression Integumentary: No Blood Disorders: No Family Medical History ADMITTED 03/09/20 FOR MRSA BACTEREMIA WITH SEPSIS, DX WITH RENAL FAILURE AND WAS TO START DIALYSIS 03/29/20 Physical Exam Vital Signs Vital Signs - First Documented 11/01/20 13:50 Temp 36.4 Pulse 105 Resp 18 B/P (MAP) 112/74 (87) Pulse Ox 94 O2 Delivery Room Air Capillary Refill : Less Than 3 Seconds Height, Weight, BMI Height: '" Weight: lbs. oz. kg; 34.00 BMI Method: General Appearance: Chronically ill, Other (Disheveled) Neck: Non Tender, Supple Respiratory: Lungs Clear, Normal Breath Sounds Cardiovascular: Tachycardia Gastrointestinal: Non Tender, Soft Neurologic/Psychiatric: Alert, No Motor/Sensory Deficits Focused Exam Lactate Level 11/01/20 14:00: Lactic Acid Level 1.12 Lactic Acid Level Laboratory Tests Test 11/01/20 14:00 Lactic Acid Level 1.12 MMOL/L (0.50-2.00) Progress/Results/Core Measures Suspected Sepsis Recent Fever Within 48 Hours: No Infection Criteria Present: None New/Unexplained Altered Menta: No Sepsis Screen: No Definite Risk SIRS Temperature: Pulse: 105 Respiratory Rate: 18 Laboratory Tests 11/01/20 14:00: White Blood Count 1.2*L Blood Pressure 112 /74 Mean: 87 11/01/20 14:00: Lactic Acid Level 1.12 Laboratory Tests 11/01/20 14:00: Creatinine 7.52#H, Platelet Count 61L, Total Bilirubin 1.7H Results/Orders Lab Results Laboratory Tests Test 11/01/20 14:00 11/01/20 14:02 Range/Units White Blood Count 1.2 *L 4.3-11.0 10^3/uL Red Blood Count 3.26 L 4.35-5.85 10^6/uL Hemoglobin 9.5 L 13.3-17.7 G/DL Hematocrit 29 L 40-54 % Mean Corpuscular Volume 88 80-99 FL Mean Corpuscular Hemoglobin 29 25-34 PG Mean Corpuscular Hemoglobin Concent 33 32-36 G/DL Red Cell Distribution Width 17.5 H 10.0-14.5 % Platelet Count 61 L 130-400 10^3/uL Mean Platelet Volume 9.8 7.4-10.4 FL Neutrophils (%) (Auto) 66 42-75 % Lymphocytes (%) (Auto) 19 12-44 % Monocytes (%) (Auto) 12 0-12 % Eosinophils (%) (Auto) 3 0-10 % Basophils (%) (Auto) 0 0-10 % Neutrophils # (Auto) 0.8 L 1.8-7.8 X 10^3 Lymphocytes # (Auto) 0.2 L 1.0-4.0 X 10^3 Monocytes # (Auto) 0.2 0.0-1.0 X 10^3 Eosinophils # (Auto) 0.0 0.0-0.3 10^3/uL Basophils # (Auto) 0.0 0.0-0.1 10^3/uL Sodium Level 125 *L 135-145 MMOL/L Potassium Level 4.5 3.6-5.0 MMOL/L Chloride Level 89 L 98-107 MMOL/L Carbon Dioxide Level 18 L 21-32 MMOL/L Anion Gap 18 H 5-14 MMOL/L Blood Urea Nitrogen 124 *H 7-18 MG/DL Creatinine 7.52 #H 0.60-1.30 MG/DL Estimat Glomerular Filtration Rate 7 BUN/Creatinine Ratio 16 Glucose Level 155 H 70-105 MG/DL Lactic Acid Level 1.12 0.50-2.00 MMOL/L Calcium Level 8.1 L 8.5-10.1 MG/DL Corrected Calcium 9.1 8.5-10.1 MG/DL Total Bilirubin 1.7 H 0.1-1.0 MG/DL Aspartate Amino Transf (AST/SGOT) 44 H 5-34 U/L Alanine Aminotransferase (ALT/SGPT) 24 0-55 U/L Alkaline Phosphatase 212 H 40-136 U/L Total Protein 7.0 6.4-8.2 GM/DL Albumin 2.8 L 3.2-4.5 GM/DL Urine Color YELLOW Urine Clarity CLOUDY Urine pH 5.5 5-9 Urine Specific Patterson 1.025 H 1.016-1.022 Urine Protein 1+ H NEGATIVE Urine Glucose (UA) NEGATIVE NEGATIVE Urine Ketones NEGATIVE NEGATIVE Urine Nitrite NEGATIVE NEGATIVE Urine Bilirubin NEGATIVE NEGATIVE Urine Urobilinogen 0.2 < = 1.0 MG/DL Urine Leukocyte Esterase NEGATIVE NEGATIVE Urine RBC (Auto) TRACE-I NEGATIVE Urine RBC 2-5 H /HPF Urine WBC NONE /HPF Urine Squamous Epithelial Cells NONE /HPF Urine Crystals PRESENT H /LPF Urine Amorphous Sediment LARGE JUNITO URATES H /LPF Urine Bacteria FEW H /HPF Urine Casts NONE /LPF Urine Mucus SMALL H /LPF Urine Culture Indicated YES My Orders Orders - KUMAR,SYLVIA L DO Cbc With Automated Diff (11/01/20 13:54) Comprehensive Metabolic Panel (11/01/20 13:54) Lactic Acid Analyzer (11/01/20 13:54) Ua Culture If Indicated (11/01/20 13:54) Ekg Tracing (11/01/20 13:56) Urine Culture (11/01/20 14:02) Vital Signs/I&O 11/01/20 11/01/20 13:50 14:57 Temp 36.4 36.5 Pulse 105 105 Resp 18 20 B/P (MAP) 112/74 (87) 130/76 Pulse Ox 94 94 O2 Delivery Room Air Room Air Capillary Refill : Less Than 3 Seconds Blood Pressure Mean: 87 Progress Note : Progress Note Called and discussed with Dr. Myrick internal medicine and nephrology on-call at [place]. That child study team director feels that patient does not be admitted for his generalized weakness and lab values but needs to go to dialysis tomorrow. Patient however states that he cannot get up and is too weak to go to dialysis on outpatient basis and cannot get about a his chair or bed. Patient was accepted by Dr. Myrick. Drivematic Machine Operator states that he does not need to come but if "we want to send him down-send him down" I did discuss with patient that his child study team director did not feel he needed admission however patient insists that he cannot ambulate and is too weak to get around and needs to be admitted. Based on his generalized weakness, neutropenia at 1.2, 125 sodium. Patient will be transferred for further treatment Departure Impression Primary Impression: Non-compliance with renal dialysis Additional Impressions: CKD (chronic kidney disease) stage 5, GFR less than 15 ml/min Leukopenia Qualified Codes: D70.9 - Neutropenia, unspecified Hyponatremia Disposition: XFER SHT-TRM HOSP Condition: Stable Transfer Transfer Reason: Exceeds level of care Time Spoke to Accepting Phy: 15:03 Transfer Facility: [facility] Method of Transfer: EMS Departure-Patient Inst. Referrals: DEYSI SWAIN DO (PCP/Family) Primary Care Physician SYLVIA KUMAR DO November 01, 2020 14:13
[2020-11-01 14:24] LABS: POTASSIUM 4.5 MMOL/L (3.6-5.0)
[2020-11-01 14:25] LABS: ALBUMIN 2.8 GM/DL (3.2-4.5); BILIRUBIN,TOTAL 1.7 MG/DL (0.1-1.0); CALCIUM 8.1 MG/DL (8.5-10.1); CREATININE SERUM 7.52 MG/DL (0.60-1.30)
[2020-11-01 14:57] VITALS: BP 130/76
== END 2020-11-01 16:22 | disposition short-term general hospital (02) ==
LOC: EDUNIT# 13:48 → ER FS 13:49
DX: I13.2 Hypertensive heart and chronic kidney disease with heart failure and with stage 5 chronic kidney disease, or end stage renal disease (principal); E11.22 Type 2 diabetes mellitus with diabetic chronic kidney disease; N18.5 Chronic kidney disease, stage 5; I50.9 Heart failure, unspecified; D72.819 Decreased white blood cell count, unspecified; E87.1 Hypo-osmolality and hyponatremia; R00.0 Tachycardia, unspecified; E11.40 Type 2 diabetes mellitus with diabetic neuropathy, unspecified; E03.9 Hypothyroidism, unspecified; F32.9 Major depressive disorder, single episode, unspecified; K21.9 Gastro-esophageal reflux disease without esophagitis; E78.00 Pure hypercholesterolemia, unspecified; I48.91 Unspecified atrial fibrillation; N40.0 Benign prostatic hyperplasia without lower urinary tract symptoms; Z99.2 Dependence on renal dialysis; Z91.15 Patient's noncompliance with renal dialysis; Z79.01 Long term (current) use of anticoagulants; Z79.890 Hormone replacement therapy; Z79.899 Other long term (current) drug therapy
CPT/HCPCS: 36415; 51702; 80053; 81000; 83605; 85025; 87088; 93005

== ENCOUNTER 2020-11-12 20:38 | Emergency (ER) | payer MEDICARE, MEDICAID ==
[~2020-11-12] VITALS: Ht 195.5 cm; Wt 110.2 kg
[2020-11-12 20:43] VITALS: BP 110/70
--- NOTE | 2020-11-12 20:57 | ED General ---
General Stated Complaint: DIALYSIS PORT ISSUE Source of Information: Patient History of Present Illness Date Seen by Provider: Nov 12, 2020 Time Seen by Provider: 20:39 Initial Comments 65-year-old male presenting with concerns about dressing over the dialysis port in his left groin. He was at [facility] and had a temporary dialysis port placed in his left groin. He states that he had dialysis last done on Monday. He has a shunt in the right forearm that he is waiting to mature so it could be used. He denies any fever or chills. He has no drainage from the insertion site of the dialysis catheter on the left. He states the dressing became like gel and came off on its own. He states he had that happen in the morning but did not present to ED until this evening for a dressing to be applied. Allergies and Home Medications Allergies Coded Allergies: oxycodone (Verified Allergy, Intermediate, 03/09/19) Home Medications Cholecalciferol (Vitamin D3) 1,250 Mcg Capsule, 1,250 MCG PO EVERY 2 WEEKS, (Reported) Dabigatran Etexilate Mesylate 150 Mg Capsule, 150 MG PO BID, (Reported) Diltiazem HCl 240 Mg Cap.er.24h, 240 MG PO DAILY Prescribed by: ABRAHAM ONEAL on 03/16/20 1120 Duloxetine HCl 60 Mg Capsule.dr, 60 MG PO DAILY, (Reported) Exenatide Microspheres 2 Mg/0.65 Ml Pen.injctr, 2 MG SC , (Reported) Fenofibrate Nanocrystallized 145 Mg Tablet, 145 MG PO DAILY, (Reported) Furosemide 20 Mg Tablet, 40 MG PO DAILY, (Reported) TAKES 2 (20MG) TABS Furosemide 20 Mg Tablet, 40 MG PO 1800 PRN for WEIGHTGAIN OVER 2 LB, (Reported) Gabapentin 100 Mg Capsule, 100 MG PO TID, (Reported) Levothyroxine Sodium 50 Mcg Tablet, 50 MCG PO DAILY, (Reported) Loratadine 10 Mg Tablet, 10 MG PO DAILY, (Reported) Metoprolol Succinate 25 Mg Tab.er.24h, 25 MG PO DAILY, (Reported) Omeprazole 20 Mg Capsule.dr, 20 MG PO DAILY, (Reported) Sacubitril/Valsartan 1 Each Tablet, 1 EA PO DAILY, (Reported) Tamsulosin HCl 0.4 Mg Cap, 0.4 MG PO 1800, (Reported) Tramadol HCl 50 Mg Tablet, 50 MG PO BID PRN for PAIN-MODERATE (5-7), (Reported) Vancomycin HCl in Water 1.5 Gm/15 Ml Vial, 1.5 GM IV DAILY Prescribed by: ABRAHAM ONEAL on 03/16/20 1120 Patient Home Medication List Home Medication List Reviewed: Yes Review of Systems Review of Systems Constitutional: No chills, No fever EENTM: no symptoms reported Respiratory: no symptoms reported Cardiovascular: no symptoms reported Gastrointestinal: no symptoms reported Genitourinary: no symptoms reported Skin: No change in color Psychiatric/Neurological: Anxiety Past Uwikzkv-Jaccpf-Ekgzoa Hx Past Med/Social Hx: Reviewed Nursing Past Med/Soc Hx Patient Social History Type Used: Cigarettes 2nd Hand Smoke Exposure: No Recent Hopitalizations: No Seasonal Allergies Seasonal Allergies: Yes Past Medical History Surgeries: Yes (Pacemaker) Pacemaker Respiratory: Yes (O2 PRN) Cardiac: Yes (Dextrocardia, Heart Failure) Atrial Fibrillation, Cardiomyopathy, Chronic Edema/Swelling, High Cholesterol, Hypertension Neurological: Yes Neuropathy Genitourinary: Yes Benign Prostatic Hyperpl, Renal Failure Gastrointestinal: Yes Gastroesophageal Reflux Musculoskeletal: No Endocrine: Yes (MORBID OBESITY) Diabetes, Insulin dep, Hypothyroidsim HEENT: No Cancer: No Psychosocial: Yes Depression Integumentary: No Blood Disorders: No Family Medical History ADMITTED 03/09/20 FOR MRSA BACTEREMIA WITH SEPSIS, DX WITH RENAL FAILURE AND WAS TO START DIALYSIS 03/29/20 Physical Exam Vital Signs Vital Signs - First Documented 11/12/20 20:43 Temp 36.6 Pulse 99 Resp 18 B/P (MAP) 110/70 (83) Pulse Ox 93 O2 Delivery Room Air Capillary Refill : Height, Weight, BMI Height: '" Weight: lbs. oz. kg; 34.00 BMI Method: General Appearance: Chronically ill Respiratory: Chest Non Tender, Lungs Clear, Decreased Breath Sounds Cardiovascular: Regular Rate, Rhythm, Normal Peripheral Pulses Extremity: Normal Range of Motion, Pedal Edema, Other (dialysis catheter in place to left groin without drainage or redness from around the insertion site. positive thrill and bruit to right elbow/forearm where he has a A-V fistula in place) Neurologic/Psychiatric: Alert, Oriented x3 Progress/Results/Core Measures Suspected Sepsis SIRS Temperature: Pulse: Respiratory Rate: Blood Pressure / Mean: Results/Orders My Orders Orders - SHIRA FAIRBANKS MD Wound Dressing-Ed (11/12/20 20:55) Vital Signs/I&O 11/12/20 20:43 Temp 36.6 Pulse 99 Resp 18 B/P (MAP) 110/70 (83) Pulse Ox 93 O2 Delivery Room Air Capillary Refill : Progress Note : Progress Note counseled to follow up with Dialysis unit about dressing changes. Applied sterile dressing tonight by nurses after cleaning the insertion site of temporary dialysis catheter. Departure Impression Primary Impression: Change or removal of surgical wound dressing Disposition: 01 HOME, SELF-CARE Condition: Stable Departure-Patient Inst. Decision time for Depature: 21:11 Referrals: DEYSI SWAIN DO (PCP/Family) Primary Care Physician Patient Instructions: How to Prevent Surgical Site Infections Add. Discharge Instructions: Keep dressing dry and in place. Follow up with dialysis clinic for dressing change and dialysis SHIRA FAIRBANKS MD Nov 12, 2020 20:57
== END 2020-11-12 21:15 | disposition home or self-care (01) ==
LOC: EDUNIT# 20:38 → ER FS 20:39
DX: Z48.01 Encounter for change or removal of surgical wound dressing (principal); I10 Essential (primary) hypertension; E78.00 Pure hypercholesterolemia, unspecified; K21.9 Gastro-esophageal reflux disease without esophagitis; E03.9 Hypothyroidism, unspecified; F32.9 Major depressive disorder, single episode, unspecified; E66.01 Morbid (severe) obesity due to excess calories; Z88.5 Allergy status to narcotic agent; Z79.899 Other long term (current) drug therapy; Z79.890 Hormone replacement therapy; Z68.34 Body mass index [BMI] 34.0-34.9, adult
CPT/HCPCS: 99282

== ENCOUNTER 2020-11-15 12:07 | Emergency (ER) | payer MEDICARE, MEDICAID ==
[~2020-11-15] VITALS: Ht 195.5 cm; Wt 134.8 kg
[2020-11-15 12:35] LABS: WHITE BLOOD COUNT 2.6 10^3/uL (4.3-11.0)
[2020-11-15 12:36] LABS: BASOPHILS % (AUTO) 1 % (0-10); EOSINOPHILS % (AUTO) 1 % (0-10); HEMATOCRIT 30 % (40-54); LYMPHOCYTES % (AUTO) 36 % (12-44); MEAN CORPUSCULAR HEMOGLOBIN 29 PG (25-34); MEAN CORPUSCULAR HGB CONC 33 G/DL (32-36); MEAN CORPUSCULAR VOLUME 89 FL (80-99); MONOCYTES # (AUTO) 0.5 X 10^3 (0.0-1.0); MONOCYTES % (AUTO) 18 % (0-12); NEUTROPHILS # (AUTO) 1.2 X 10^3 (1.8-7.8); NEUTROPHILS % (AUTO) 44 % (42-75); PLATELET COUNT 86 10^3/uL (130-400)
[2020-11-15 12:47] LABS: ALANINE AMINOTRANSFERASE 21 U/L (0-55); ALKALINE PHOSPHATASE 271 U/L (40-136); BILIRUBIN,TOTAL 1.6 MG/DL (0.1-1.0); BUN/CREATININE RATIO 11; CALCIUM 8.1 MG/DL (8.5-10.1); CARBON DIOXIDE 19 MMOL/L (21-32); CHLORIDE 93 MMOL/L (98-107); CREATININE SERUM 7.25 MG/DL (0.60-1.30); GFR ESTIMATED 8; GLUCOSE 237 MG/DL (70-105); POTASSIUM 5.4 MMOL/L (3.6-5.0); SALICYLATE 0.6 MG/DL (5.0-20.0); SODIUM 132 MMOL/L (135-145); TOTAL PROTEIN 7.5 GM/DL (6.4-8.2)
[2020-11-15 12:48] LABS: ACETAMINOPHEN < 10 UG/ML (10-30)
--- NOTE | 2020-11-15 12:49 | ED General ---
General Chief Complaint: Altered Mental Status Stated Complaint: ALTERED MENTAL STATUS Source of Information: Patient, EMS, Family (brother, dplinda), Old Records Exam Limitations: Other (altered mental status) History of Present Illness Date Seen by Provider: Nov 15, 2020 Time Seen by Provider: 12:07 Initial Comments 65 yo male presenting by EMS from home. His brother is DURABLE POWER OF PROCESSING TECHNICIAN and was trying to check on him today and the patient was not answering the phone. The brother states he was having a little more confusion last night before he left him around midnight. Then when they went to check on him today he was laying on the floor and was belligerent and yelling. He kept yelling for someone to come over to him. He had a bloody nose that was all dried blood. There is no obvious fracture or facial trauma otherwise. He was moving all of his arms and legs. He has a temporary dialysis catheter in the left groin that is exposed. He had a dressing that was applied when he came to the emergency department overnight night. However that dressing has come off at this point and is only partially attached. He has no redness or drainage from the insertion site of the temporary dialysis catheter. He is not able to be redirected or obtain history from the patient. He is trying to reach out and grab staff as well as keeps yelling for someone to come over to him. He has a history of recurrent sepsis. Associated Systoms: No Nausea/Vomiting Allergies and Home Medications Allergies Coded Allergies: oxycodone (Verified Allergy, Intermediate, 03/09/19) Home Medications Cholecalciferol (Vitamin D3) 1,250 Mcg Capsule, 1,250 MCG PO EVERY 2 WEEKS, (Reported) Dabigatran Etexilate Mesylate 150 Mg Capsule, 150 MG PO BID, (Reported) Diltiazem HCl 240 Mg Cap.er.24h, 240 MG PO DAILY Prescribed by: ABRAHAM ONEAL on 03/16/20 1120 Duloxetine HCl 60 Mg Capsule.dr, 60 MG PO DAILY, (Reported) Exenatide Microspheres 2 Mg/0.65 Ml Pen.injctr, 2 MG SC TUES, (Reported) Fenofibrate Nanocrystallized 145 Mg Tablet, 145 MG PO DAILY, (Reported) Furosemide 20 Mg Tablet, 40 MG PO DAILY, (Reported) TAKES 2 (20MG) TABS Furosemide 20 Mg Tablet, 40 MG PO 1800 PRN for WEIGHTGAIN OVER 2 LB, (Reported) Gabapentin 100 Mg Capsule, 100 MG PO TID, (Reported) Levothyroxine Sodium 50 Mcg Tablet, 50 MCG PO DAILY, (Reported) Loratadine 10 Mg Tablet, 10 MG PO DAILY, (Reported) Metoprolol Succinate 25 Mg Tab.er.24h, 25 MG PO DAILY, (Reported) Omeprazole 20 Mg Capsule.dr, 20 MG PO DAILY, (Reported) Sacubitril/Valsartan 1 Each Tablet, 1 EA PO DAILY, (Reported) Tamsulosin HCl 0.4 Mg Cap, 0.4 MG PO 1800, (Reported) Tramadol HCl 50 Mg Tablet, 50 MG PO BID PRN for PAIN-MODERATE (5-7), (Reported) Vancomycin HCl in Water 1.5 Gm/15 Ml Vial, 1.5 GM IV DAILY Prescribed by: ABRAHAM ONEAL on 03/16/20 1120 Patient Home Medication List Home Medication List Reviewed: Yes Review of Systems Review of Systems Constitutional: see HPI; No fever unable to obtain full ROS due to altered mental status and patient not answering questions Past Qluiebs-Tiefoz-Xecppl Hx Past Med/Social Hx: Reviewed Nursing Past Med/Soc Hx Patient Social History Type Used: Cigarettes 2nd Hand Smoke Exposure: No Recent Hopitalizations: No Seasonal Allergies Seasonal Allergies: Yes Past Medical History Surgeries: Yes (Pacemaker) Pacemaker Respiratory: Yes (O2 PRN) Cardiac: Yes (Dextrocardia, Heart Failure) Atrial Fibrillation, Cardiomyopathy, Chronic Edema/Swelling, High Cholesterol, Hypertension Neurological: Yes Neuropathy Genitourinary: Yes Benign Prostatic Hyperpl, Renal Failure Gastrointestinal: Yes Gastroesophageal Reflux Musculoskeletal: No Endocrine: Yes (MORBID OBESITY) Diabetes, Insulin dep, Hypothyroidsim HEENT: No Cancer: No Psychosocial: Yes Depression Integumentary: No Blood Disorders: No Family Medical History ADMITTED 03/09/20 FOR MRSA BACTEREMIA WITH SEPSIS, DX WITH RENAL FAILURE AND WAS TO START DIALYSIS 03/29/20 Physical Exam Vital Signs Capillary Refill : Height, Weight, BMI Height: '" Weight: lbs. oz. kg; 28.00 BMI Method: General Appearance: Chronically ill, Moderate Distress (thrashing on bed and trying to reach out and grab at things and staff. yelling repeatedly "come over here!" "Come Here!") HEENT: PERRL/EOMI, Other (dried blood in nares and face) Neck: Full Range of Motion, Supple Respiratory: Crackles, Decreased Breath Sounds, Rhonci Cardiovascular: Normal Peripheral Pulses, Tachycardia Gastrointestinal: No Pulsatile Mass, Non Tender, Soft Rectal: Deferred Extremity: Normal Range of Motion, Pedal Edema (2+ bilateral lower extremities) Neurologic/Psychiatric: Alert; No Oriented x3 Skin: Warm/Dry, Ecchymosis (multiple bruises all over body in various stages of healing) Focused Exam Sepsis Stage: Severe Sepsis Possible Source: Unknown Lactate Level 11/15/20 12:20: Lactic Acid Level 5.19*H Time of Focused Exam: 13:44 Respiratory: Chest Non Tender, Crackles, Decreased Breath Sounds, Rhonci Cardiovascular: Normal Peripheral Pulses, Tachycardia Capillary Refill: Less Than 3 Seconds Peripheral Pulses: 2+ Radial Pulses (R), 2+ Radial Pulses (L) Skin: normal color, warm/dry Lactic Acid Level Laboratory Tests Test 11/15/20 12:20 Lactic Acid Level 5.19 MMOL/L (0.50-2.00) *H Within 3hrs of presentation: Admin fluids, Admin ABX, Blood cultures prior to ABX's, Focus exam, Lactate level Procedures/Interventions Reason for Intubation: combative, altered mental status Date of ETT Placement: Nov 15, 2020 Intubation Method: orotracheal Tube Size: 7.5 Medications: Etomidate, Succinylcholine, Versed Positive End Tide CO2: Yes Breath Sounds after Intubation: bilateral-equal Intubation Complications: no complications Post Intubation Xray: Yes ETT in trachea and above chely As patient was combative and had altered mental status and was unable to be redirected he was intubated to be able to complete his assessment and perform testing. A 7.5 ET tube was placed on first attempt by orotracheal approach using a 4 Mac Blade. This was done without complications and he had good breath sounds equally. He had positive color change with ETCO2. Tube was secured at 24 cm at the upper lip Progress/Results/Core Measures Suspected Sepsis SIRS Temperature: Pulse: Respiratory Rate: Laboratory Tests 11/15/20 12:20: White Blood Count 2.6L Blood Pressure / Mean: 11/15/20 12:20: Lactic Acid Level 5.19*H Laboratory Tests 11/15/20 12:20: Creatinine 7.25H, INR Comment 1.2, Platelet Count 86L, Total Bilirubin 1.6H Results/Orders Lab Results Laboratory Tests Test 11/15/20 12:20 11/15/20 12:45 11/15/20 13:07 Range/Units White Blood Count 2.6 L 4.3-11.0 10^3/uL Red Blood Count 3.39 L 4.35-5.85 10^6/uL Hemoglobin 10.0 L 13.3-17.7 G/DL Hematocrit 30 L 40-54 % Mean Corpuscular Volume 89 80-99 FL Mean Corpuscular Hemoglobin 29 25-34 PG Mean Corpuscular Hemoglobin Concent 33 32-36 G/DL Red Cell Distribution Width 17.7 H 10.0-14.5 % Platelet Count 86 L 130-400 10^3/uL Mean Platelet Volume 10.0 7.4-10.4 FL Immature Granulocyte % (Auto) 0 % Neutrophils (%) (Auto) 44 42-75 % Lymphocytes (%) (Auto) 36 12-44 % Monocytes (%) (Auto) 18 H 0-12 % Eosinophils (%) (Auto) 1 0-10 % Basophils (%) (Auto) 1 0-10 % Neutrophils # (Auto) 1.2 L 1.8-7.8 X 10^3 Lymphocytes # (Auto) 1.0 1.0-4.0 X 10^3 Monocytes # (Auto) 0.5 0.0-1.0 X 10^3 Eosinophils # (Auto) 0.0 0.0-0.3 10^3/uL Basophils # (Auto) 0.0 0.0-0.1 10^3/uL Immature Granulocyte # (Auto) 0.0 0.0-0.1 10^3/uL Percent Immature Platelet Fraction 1.3 0.0-7.6 % Prothrombin Time 15.2 H 12.2-14.7 SEC INR Comment 1.2 0.8-1.4 Activated Partial Thromboplast Time 39 H 24-35 SEC Sodium Level 132 L 135-145 MMOL/L Potassium Level 5.4 H 3.6-5.0 MMOL/L Chloride Level 93 L 98-107 MMOL/L Carbon Dioxide Level 19 L 21-32 MMOL/L Anion Gap 20 H 5-14 MMOL/L Blood Urea Nitrogen 82 H 7-18 MG/DL Creatinine 7.25 H 0.60-1.30 MG/DL Estimat Glomerular Filtration Rate 8 BUN/Creatinine Ratio 11 Glucose Level 237 H 70-105 MG/DL Lactic Acid Level 5.19 *H 0.50-2.00 MMOL/L Calcium Level 8.1 L 8.5-10.1 MG/DL Corrected Calcium 8.9 8.5-10.1 MG/DL Magnesium Level 2.4 1.6-2.4 MG/DL Total Bilirubin 1.6 H 0.1-1.0 MG/DL Aspartate Amino Transf (AST/SGOT) 48 H 5-34 U/L Alanine Aminotransferase (ALT/SGPT) 21 0-55 U/L Alkaline Phosphatase 271 H 40-136 U/L Troponin I < 0.30 <0.30 NG/ML Total Protein 7.5 6.4-8.2 GM/DL Albumin 3.0 L 3.2-4.5 GM/DL Salicylates Level 0.6 L 5.0-20.0 MG/DL Acetaminophen Level < 10 L 10-30 UG/ML Serum Alcohol < 10 <10 MG/DL Urine Color YELLOW Urine Clarity SLIGHTLY CLOUDY Urine pH 5.5 5-9 Urine Specific [place] 1.025 H 1.016-1.022 Urine Protein 2+ H NEGATIVE Urine Glucose (UA) TRACE H NEGATIVE Urine Ketones NEGATIVE NEGATIVE Urine Nitrite NEGATIVE NEGATIVE Urine Bilirubin NEGATIVE NEGATIVE Urine Urobilinogen 0.2 < = 1.0 MG/DL Urine Leukocyte Esterase NEGATIVE NEGATIVE Urine RBC (Auto) 1+ H NEGATIVE Urine RBC NONE /HPF Urine WBC 2-5 /HPF Urine Renal Epithelial Cells 2-5 /HPF Urine Crystals NONE /LPF Urine Bacteria MODERATE H /HPF Urine Casts PRESENT /LPF Urine Hyaline Casts 5-10 H /LPF Urine Granular Casts 2-5 H /LPF Urine Coarse Granular Casts 2-5 H /LPF Urine Mucus LARGE H /LPF Urine Culture Indicated YES Urine Opiates Screen NEGATIVE NEGATIVE Urine Oxycodone Screen NEGATIVE NEGATIVE Urine Methadone Screen NEGATIVE NEGATIVE Urine Propoxyphene Screen NEGATIVE NEGATIVE Urine Barbiturates Screen NEGATIVE NEGATIVE Ur Tricyclic Antidepressants Screen NEGATIVE NEGATIVE Urine Phencyclidine Screen NEGATIVE NEGATIVE Urine Amphetamines Screen NEGATIVE NEGATIVE Urine Methamphetamines Screen NEGATIVE NEGATIVE Urine Benzodiazepines Screen NEGATIVE NEGATIVE Urine Cocaine Screen NEGATIVE NEGATIVE Urine Cannabinoids Screen NEGATIVE NEGATIVE Blood Gas Puncture Site ARTERIAL Blood Gas Patient Temperature 36.4 Arterial Blood pH 7.38 7.37-7.43 Arterial Blood Partial Pressure CO2 34 L 35-45 MMHG Arterial Blood Partial Pressure O2 98 H 79-93 MMHG Arterial Blood HCO3 20 L 23-27 MMOL/L Arterial Blood Total CO2 21.1 21.0-31.0 MMOL/L Arterial Blood Oxygen Saturation 97 94-100 % Arterial Blood Base Excess -4.3 L -2.5-2.5 MMOL/L Devyn Test NA Blood Gas Ventilator Setting YES Blood Gas Inspired Oxygen INTUBATED My Orders Orders - SHIRA FAIRBANKS MD Ct Head Wo (11/15/20 12:11) Ua Culture If Indicated (11/15/20 12:12) Cbc With Automated Diff (11/15/20 12:12) Comprehensive Metabolic Panel (11/15/20 12:12) Alcohol (11/15/20 12:12) Drug Screen Stat (Urine) (11/15/20 12:12) Acetaminophen (11/15/20 12:12) Salicylate (11/15/20 12:12) Ekg Tracing (11/15/20 12:12) Ed Iv/Invasive Line Start (11/15/20 12:12) Monitor-Rhythm Ecg Trace Only (11/15/20 12:12) Chest 1 View Ap/Pa Only (11/15/20 12:32) Arterial Blood Gas (11/15/20 12:37) Ventilator Settings Order (11/15/20 12:37) Troponin I Fs (11/15/20 12:37) Magnesium (11/15/20 12:37) Teixeira Cath (11/15/20 12:37) Og Tube Insertion (11/15/20 12:39) Wound Dressing-Ed (11/15/20 12:40) Protime With Inr (11/15/20 12:41) Partial Thromboplastin Time (11/15/20 12:41) Phosphorus (11/15/20 12:20) Blood Culture (11/15/20 12:50) Lactic Acid Analyzer (11/15/20 12:50) Urine Culture (11/15/20 12:45) Propofol Drip (Icu) (Diprivan Drip (Icu) (11/15/20 12:58) Ed Iv/Invasive Line Start (11/15/20 13:12) Ns Iv 500 Ml (Sodium Chloride 0.9%) (11/15/20 13:15) Ns Iv 1000 Ml (Sodium Chloride 0.9%) (11/15/20 13:13) Cefepime Injection (Maxipime Injection) (11/15/20 13:18) Vancomycin Injection (Vancomycin Injecti (11/15/20 13:18) Ed Iv/Invasive Line Start (11/15/20 14:20) Ns Iv 1000 Ml (Sodium Chloride 0.9%) (11/15/20 14:30) Ns (Ivpb) (Sodium Chloride 0.9% Ivpb Bag (11/15/20 14:30) Medications Given in ED Current Medications Medications Dose Ordered Sig/Stephen Route Start Time Stop Time Status Last Admin Dose Admin Sodium Chloride 100 ml ONCE ONCE IV 11/15/20 14:30 11/15/20 14:31 DC 11/15/20 14:23 100 ML Sodium Chloride 500 ml @ 0 mls/hr Q0M ONCE IV 11/15/20 13:15 11/15/20 13:16 DC 11/15/20 13:15 1,000 MLS/HR Vital Signs/I&O Capillary Refill : Progress Note #1: Progress Note with patient yelling out and grabbing at staff and things that were not there, he had to be sedated and intubated to be able to fully assess him. He was not sitting still and was not able to be redirected or explain what was happening. Since he did have the blood on his face will need to check for signs of head bleed, stroke, cranial fracture, mass. Check labs to look for infection as well as heart attack, worsening renal failure, sepsis with his dialysis catheter in his groin and having poor hygiene around this. Patient was intubated on first attempt by myself. He was given premedication with etomidate 20 mg IV, 100 mg of succinylcholine, 5 mg of Versed. He was placed on auto vent and ventilator to help maintain his O2 sat at 100% FiO2. He was finally able to obtain further labs as well as UA with Teixeira placement and place an orogastric tube. His CT head and chest x-ray were then obtained as well to further evaluate for signs of infection, stroke, sepsis, head bleed Differential diagnosis includes sepsis, metabolic encephalopathy, pneumonia, intracranial hemorrhage, lung mass, metabolic abnormality, acute on chronic renal failure Progress Note #2: Progress Note CT scan does not show any acute hemorrhage or stroke or mass. Labs do show stable CBC with chronic anemia hemoglobin around 10. His platelets are low but stable for him. He has a white count of 2.6 which is also given stable for his previous tests. He has chemistry showing multiple electrolyte abnormalities with mild elevation of his potassium to 5.4. His creatinine is up to 7.25. He had ET tube in place above the chely. Otherwise his chest x-ray appeared stable from previous imaging. He has chronic fluid overload with some small pleural effusions in the base. He has right dextrocardia. There was no definite new infiltrate seen on the x-ray. Urinalysis was able to be obtained and does not show any drugs in his system. His UA did show some bacteria and white blood cells but no leukocyte esterase or nitrites. We will contact [facility] since he was just released from there. Progress Note #3: Time: 13:03 Progress Note At 1303 call placed to [facility] transfer center and spoke with Michelle LE. She took some basic information and then got in touch with the ICU doctor. Discussed case with Dr. Keith from ICU at [facility]. At 1314 he accepted the patient for transfer. Will continue with fluids and advised that I was still waiting on scan for official report from radiology. Shortly after getting off the phone with Dr. Keith the lab reported his Lactic acid at 5.19. How much of that is from his chronic renal failure and how much is from acute sepsis it is hard to say. Will cover him with Cefepime, Vancomycin while waiting on transfer. patient had his blood pressure come down with meds for sedation and paralysis that were given in CT. He was given an additional Versed 5 mg and Rocuronium 50 mg. After this he had a drop in blood pressure to 70s systolic. Given IVF bolus to help with pressure and with presumed sepsis. 1344 on recheck of the patient his blood pressure was improving with fluids and antibiotics. He remained sedated with medications on board. ABG did not show significant hypoxia or acidosis. Air transport should arrive around 1400. ECG Initial ECG Impression Date: Nov 15, 2020 Initial ECG Impression Time: 12:56 Initial ECG Rate: 121 Initial ECG Rhythm: A Fib/Flutter Diagnostic Imaging Diagonstic Imaging: Xray Plain Films/CT/US/NM/MRI: chest Comments [facility], [place] NAME: LOVE MÁRQUEZ [facility] REC#: [id number] PT STATUS: REG ER : 1955 PHYSICIAN: SHIRA FAIRBANKS MD ADMIT DATE: 11/15/20/ER FS Draft Date of Exam:11/15/20 CHEST 1 VIEW AP/PA ONLY INDICATION: Intubation. TECHNIQUE: Single view chest 12:33 PM. CORRELATION STUDY: 10/29/2020 FINDINGS: Dextrocardia again demonstrated with a right-sided aortic arch. Cardiac enlargement. A component of vascular congestion suggested. The endotracheal tube projects over the trachea above the chely, below the clavicles. Left-sided AICD present. Bilateral pulmonary opacities are present. Multiple overlying monitor leads are present. IMPRESSION: 1. Endotracheal tube projects over the trachea, above the chely and below the clavicles. 2. Cardiac enlargement with a component vascular congestion. Bilateral pulmonary opacities are present. Dictated on workstation # [id number] Dict: 11/15/20 1305 Trans: 11/15/20 1329 [facility] [id number] Interpreted by: CALEB BIGGS DO Electronically signed by: Reviewed: Reviewed by Me Diagonstic Imaging: CT Plain Films/CT/US/NM/MRI: head Comments [facility] [place] [place] NAME: LOVE MÁRQUEZ [facility] REC#: [id number] PT STATUS: REG ER : 1955 PHYSICIAN: SHIRA FAIRBANKS MD ADMIT DATE: 11/15/20/ER FS Draft Date of Exam:11/15/20 CT HEAD WO PROCEDURE: CT head without contrast. TECHNIQUE: Multiple contiguous axial images were obtained through the brain without the use of intravenous contrast. Auto Exposure Controls were utilized during the CT exam to meet ALARA standards for radiation dose reduction. INDICATION: Fall, altered mental status COMPARISON: 03/10/2020 FINDINGS: No intracranial hemorrhage. No intracranial mass, mass effect, midline shift, herniation, hydrocephalus, or extra-axial fluid collection. No CT evidence of an acute ischemic infarction. Bilateral ocular lenses are absent. Background vascular calcifications. Chronic medial deviation of the right lamina appreciated. The paranasal sinuses appear clear besides a small mucous retention cyst within the left maxillary sinus. The calvarium otherwise appears intact. IMPRESSION: Stable appearing examination without acute intracranial abnormality. Dictated on workstation # [id number] Dict: 11/15/20 1304 Trans: 11/15/20 1330 [facility] [id number] Interpreted by: MIRZA ARMSTRONG MD Electronically signed by: Reviewed: Reviewed by Me Critical Care Note Critical Care Total Time (minutes) 60 minutes Progress 60 minutes of critical care time was spent in direct care of the patient. This excludes separately billable procedures. Time was spent in obtaining history from patient, family, medical records, EMS, ordering test and reviewing results, ordering interventions and reviewing response, discussion with consultants, discussion with family, documentation in the chart. Patient was at imminent risk of neurologic compromise as well as cardiovascular compromise. He required my constant immediate attention to help stabilize and treat his condition. Departure Impression Primary Impression: Sepsis Qualified Codes: A41.9 - Sepsis, unspecified organism Additional Impressions: Altered mental status Qualified Codes: R41.82 - Altered mental status, unspecified Acute metabolic encephalopathy Chronic kidney disease with end stage renal failure on dialysis Fall at home Qualified Codes: W19.XXXA - Unspecified fall, initial encounter; Y92.009 - Unspecified place in unspecified non-institutional (private) residence as the place of occurrence of the external cause Epistaxis Disposition: 02 XFER SHT-TRM HOSP Condition: Critical Transfer Transfer Reason: Exceeds level of care Time Spoke to Accepting Phy: 13:14 Transfer Progress Notes d/w Dr. Keith for ICU care at [facility] and he will take pt in transfer to ICU. After speaking with him on initial call I did let him know officail reading for CT head and CXR were pending as well as the ABG and Lactic acid. These came back shortly after the call. Addressed elevated lactic acid with IVF, antibiotics of Cefepime, Vancomycin. Blood pressure did drop initially after his 2nd dose of medicines to help sedate and paralyze him for the CT scan but then improved with IVF. Transfer Facility: [facility] [place] Method of Transfer: Air Departure-Patient Inst. Referrals: DEYSI SWAIN DO (PCP/Family) Primary Care Physician SHIRA FAIRBANKS MD Nov 15, 2020 12:49
[2020-11-15 12:51] LABS: MAGNESIUM 2.4 MG/DL (1.6-2.4)
[2020-11-15 12:53] LABS: INR 1.2 (0.8-1.4); PROTHROMBIN TIME PATIENT 15.2 SEC (12.2-14.7)
[2020-11-15 12:58] LABS: BACTERIA,URINE MODERATE /HPF; BILIRUBIN,URINE NEGATIVE (NEGATIVE); CLARITY,URINE SLIGHTLY CLOUDY; COLOR,URINE YELLOW; GLUCOSE, URINE (UA) TRACE (NEGATIVE); KETONES,URINE NEGATIVE (NEGATIVE); LEUKOCYTE ESTERASE ,URINE NEGATIVE (NEGATIVE); NITRITE,URINE NEGATIVE (NEGATIVE); PH,URINE 5.5 (5-9); PROTEIN,URINE 2+ (NEGATIVE)
[2020-11-15] MEDS ORDERED: PROPOFOL DRIP (ICU) 100 ML IV STA (12:58)
[2020-11-15 13:05] LABS: AMPHETAMINE SCREEN, URINE NEGATIVE (NEGATIVE); BARBITURATE SCREEN URINE NEGATIVE (NEGATIVE); BENZODIAZEPINES SCREEN URINE NEGATIVE (NEGATIVE); CANNABINOID SCREEN, URINE NEGATIVE (NEGATIVE); COCAINE SCREEN URINE NEGATIVE (NEGATIVE); METHADONE STAT NEGATIVE (NEGATIVE); METHAMPHETAMINE SCREEN URINE S NEGATIVE (NEGATIVE); OPIATE SCREEN URINE NEGATIVE (NEGATIVE); OXYCODONE STAT NEGATIVE (NEGATIVE); PROPOXYPHENE STAT NEGATIVE (NEGATIVE); TRICYCLIC ANTIDEPRESSANTS SCRE NEGATIVE (NEGATIVE)
[2020-11-15] MEDS ORDERED: NS IV 500 ML 500 ML ONE (13:10)
[2020-11-15 13:12] LABS: INSPIRED O2 INTUBATED; PATIENT TEMP 36.4; VENTILATOR YES
[2020-11-15 13:13] LABS: ABG PCO2 34 MMHG (35-45); ABG PH 7.38 (7.37-7.43); ABG PO2 98 MMHG (79-93)
[2020-11-15 13:14] LABS: ABG BASE EXCESS -4.3 MMOL/L (-2.5-2.5); ABG OXYGEN SATURATION 97 % (94-100); ABG TCO2 21.1 MMOL/L (21.0-31.0)
[2020-11-15] MEDS: NS IV 1000 ML 1,000 ML IV STA ×2 (13:15→13:28)
[2020-11-15] MEDS ORDERED: NS IV 500 ML 500 ML IV ONE (13:15)
[2020-11-15] MEDS ORDERED: CEFEPIME INJECTION 1,000 MG in WATER (STERILE) FOR INJECTION 10 ML IV STA (13:18)
[2020-11-15] MEDS ORDERED: VANCOMYCIN INJECTION 1,000 MG in NS (IVPB) 250 ML IV STA (13:18)
--- NOTE | 2020-11-15 13:30 | Diagnostic Imaging Report ---
INDICATION: Intubation. TECHNIQUE: Single view chest 12:33 PM. CORRELATION STUDY: 10/29/2020 FINDINGS: Dextrocardia again demonstrated with a right-sided aortic arch. Cardiac enlargement. A component of vascular congestion suggested. The endotracheal tube projects over the trachea above the chely, below the clavicles. Left-sided AICD present. Bilateral pulmonary opacities are present. Multiple overlying monitor leads are present. IMPRESSION: 1. Endotracheal tube projects over the trachea, above the chely and below the clavicles. 2. Cardiac enlargement with a component vascular congestion. Bilateral pulmonary opacities are present. Dictated by: Dictated on workstation # [id number]
--- NOTE | 2020-11-15 13:31 | Diagnostic Imaging Report ---
PROCEDURE: CT head without contrast. TECHNIQUE: Multiple contiguous axial images were obtained through the brain without the use of intravenous contrast. Auto Exposure Controls were utilized during the CT exam to meet ALARA standards for radiation dose reduction. INDICATION: Fall, altered mental status COMPARISON: 03/10/2020 FINDINGS: No intracranial hemorrhage. No intracranial mass, mass effect, midline shift, herniation, hydrocephalus, or extra-axial fluid collection. No CT evidence of an acute ischemic infarction. Bilateral ocular lenses are absent. Background vascular calcifications. Chronic medial deviation of the right lamina appreciated. The paranasal sinuses appear clear besides a small mucous retention cyst within the left maxillary sinus. The calvarium otherwise appears intact. IMPRESSION: Stable appearing examination without acute intracranial abnormality. Dictated by: Dictated on workstation # [id number]
[2020-11-15] MEDS ORDERED: NS IV 1000 ML 1,000 ML ONE (14:18)
[2020-11-15] MEDS ORDERED: NS (IVPB) 100 ML ONE (14:18)
[2020-11-15] MEDS ORDERED: NS IV 1000 ML 1,000 ML IV SCH (14:30)
[2020-11-15] MEDS ORDERED: NS 100 ML (IVPB) BAG IV ONE (14:30)
[2020-11-15 14:40] VITALS: BP 144/78
== END 2020-11-15 14:40 | disposition short-term general hospital (02) ==
LOC: EDUNIT# 12:07 → ER FS 12:11
DX: A41.9 Sepsis, unspecified organism (principal); R41.82 Altered mental status, unspecified; G93.41 Metabolic encephalopathy; I12.0 Hypertensive chronic kidney disease with stage 5 chronic kidney disease or end stage renal disease; N18.6 End stage renal disease; R04.0 Epistaxis; E66.01 Morbid (severe) obesity due to excess calories; I10 Essential (primary) hypertension; F32.9 Major depressive disorder, single episode, unspecified; K21.9 Gastro-esophageal reflux disease without esophagitis; E03.9 Hypothyroidism, unspecified; E78.00 Pure hypercholesterolemia, unspecified; N40.0 Benign prostatic hyperplasia without lower urinary tract symptoms; E11.9 Type 2 diabetes mellitus without complications; Z68.28 Body mass index [BMI] 28.0-28.9, adult; Z88.5 Allergy status to narcotic agent; Z79.890 Hormone replacement therapy; Z79.899 Other long term (current) drug therapy
CPT/HCPCS: 31500; 36415; 51702; 70450; 71045; 80053; 80306; 80320; 80329; 81000; 82805; 83605; 83735; 84100; 84484; 85025; 85610; 85730; 87040; 87088; 93005; 93041; 99291; 99292

== ENCOUNTER 2020-12-10 12:14 | Inpatient (IN) | payer MEDICARE, MEDICAID ==
[~2020-12-10] VITALS: Ht 195.6 cm; Wt 113.4 kg
--- NOTE | 2020-12-10 12:55 | ED EENT ---
History of Present Illness General Chief Complaint: Nasal Problems Stated Complaint: DIC Source: patient Exam Limitations: no limitations History of Present Illness Date Seen by Provider: Dec 10, 2020 Time Seen by Provider: 12:30 Initial Comments Sent to ER by EMS from dialysis center. He was admitted to the hospital at [facility] from sometime in September and discharged on Monday of this week. He received his first dialysis after discharge today. Dialysis nurse noticed him to be hypotensive during dialysis and as such she was only able to remove 3 L of fluid. His pressures were in the 70s 80s and 90s systolic. He had a bilateral nosebleed that she could not get stopped. He has a Teixeira catheter bag with significant amount of blood in it. He has a pressure ulcer to the posterior left heel which is also oozing blood. He is on Pradaxa for history of atrial fibrillation. She did not give heparin during the dialysis course today due to the bleeding. Timing/Duration: abrupt Severity: moderate Associated Symptoms: denies symptoms Allergies and Home Medications Allergies Coded Allergies: oxycodone (Verified Allergy, Intermediate, 03/09/19) Home Medications Cholecalciferol (Vitamin D3) 1,250 Mcg Capsule, 1,250 MCG PO EVERY 2 WEEKS, (Reported) Dabigatran Etexilate Mesylate 150 Mg Capsule, 150 MG PO BID, (Reported) Diltiazem HCl 240 Mg Cap.er.24h, 240 MG PO DAILY Prescribed by: ABRAHAM ONEAL on 03/16/20 1120 Duloxetine HCl 60 Mg Capsule.dr, 60 MG PO DAILY, (Reported) Exenatide Microspheres 2 Mg/0.65 Ml Pen.injctr, 2 MG SC , (Reported) Fenofibrate Nanocrystallized 145 Mg Tablet, 145 MG PO DAILY, (Reported) Furosemide 20 Mg Tablet, 40 MG PO DAILY, (Reported) TAKES 2 (20MG) TABS Furosemide 20 Mg Tablet, 40 MG PO 1800 PRN for WEIGHTGAIN OVER 2 LB, (Reported) Gabapentin 100 Mg Capsule, 100 MG PO TID, (Reported) Levothyroxine Sodium 50 Mcg Tablet, 50 MCG PO DAILY, (Reported) Loratadine 10 Mg Tablet, 10 MG PO DAILY, (Reported) Metoprolol Succinate 25 Mg Tab.er.24h, 25 MG PO DAILY, (Reported) Omeprazole 20 Mg Capsule.dr, 20 MG PO DAILY, (Reported) Sacubitril/Valsartan 1 Each Tablet, 1 EA PO DAILY, (Reported) Tamsulosin HCl 0.4 Mg Cap, 0.4 MG PO 1800, (Reported) Tramadol HCl 50 Mg Tablet, 50 MG PO BID PRN for PAIN-MODERATE (5-7), (Reported) Vancomycin HCl in Water 1.5 Gm/15 Ml Vial, 1.5 GM IV DAILY Prescribed by: ABRAHAM NOEAL on 03/16/20 1120 Patient Home Medication List Home Medication List Reviewed: Yes Review of Systems Review of Systems Constitutional: see HPI Eyes: No Symptoms Reported Ears: No Symptoms Reported Nose: see HPI, epistaxis Mouth: no symptoms reported Throat: no symptoms reported Respiratory: no symptoms reported Cardiovascular: no symptoms reported Musculoskeletal: no symptoms reported Skin: no symptoms reported Past Nvplfnt-Fhrezh-Cxatfm Hx Seasonal Allergies Seasonal Allergies: Yes Past Medical History Surgeries: Yes (Pacemaker) Pacemaker Respiratory: Yes (O2 PRN) Cardiac: Yes (Dextrocardia, Heart Failure) Atrial Fibrillation, Cardiomyopathy, Chronic Edema/Swelling, High Cholesterol, Hypertension Neurological: Yes Neuropathy Genitourinary: Yes Benign Prostatic Hyperpl, Renal Failure Gastrointestinal: Yes Gastroesophageal Reflux Musculoskeletal: No Endocrine: Yes (MORBID OBESITY) Diabetes, Insulin dep, Hypothyroidsim HEENT: No Cancer: No Psychosocial: Yes Depression Integumentary: No Blood Disorders: No Family Medical History ADMITTED 03/09/20 FOR MRSA BACTEREMIA WITH SEPSIS, DX WITH RENAL FAILURE AND WAS TO START DIALYSIS 03/29/20 Physical Exam Vital Signs Vital Signs - First Documented 12/10/20 12/10/20 12:35 12:36 Temp 36.8 Pulse 106 Resp 17 B/P (MAP) 74/35 (48) Pulse Ox 95 O2 Delivery OxyMask O2 Flow Rate 15.00 Height, Weight, BMI Height: '" Weight: lbs. oz. kg; 35.00 BMI Method: General Appearance: WD/WN, no apparent distress, other (Thin, chronically ill, hypotensive lethargic) Eyes: bilateral eye normal inspection, bilateral eye PERRL, bilateral eye EOMI Ears: bilateral ear auricle normal, bilateral ear canal normal, bilateral ear TM normal Neck: non-tender, full range of motion Respiratory: no respiratory distress, no accessory muscle use Gastrointestinal: normal bowel sounds, non tender Neurologic/Psychiatric: alert, normal mood/affect, oriented x 3 Skin: normal color, warm/dry Procedures/Interventions Date of ETT Placement: Nov 15, 2020 Time of ETT Placement: 1233 Progress/Results/Core Measures Results/Orders Lab Results Laboratory Tests Test 12/10/20 12:47 12/10/20 13:07 Range/Units White Blood Count 2.3 L 4.3-11.0 10^3/uL Red Blood Count 2.87 L 4.30-5.52 10^6/uL Hemoglobin 8.3 L 13.3-17.7 g/dL Hematocrit 26 L 40-54 % Mean Corpuscular Volume 90 80-99 fL Mean Corpuscular Hemoglobin 29 25-34 pg Mean Corpuscular Hemoglobin Concent 32 32-36 g/dL Red Cell Distribution Width 19.0 H 10.0-14.5 % Platelet Count 54 L 130-400 10^3/uL Mean Platelet Volume 9.4 9.0-12.2 fL Immature Granulocyte % (Auto) 0 % Neutrophils (%) (Auto) 79 H 42-75 % Lymphocytes (%) (Auto) 10 L 12-44 % Monocytes (%) (Auto) 8 0-12 % Eosinophils (%) (Auto) 2 0-10 % Basophils (%) (Auto) 0 0-10 % Neutrophils # (Auto) 1.8 1.8-7.8 10^3/uL Lymphocytes # (Auto) 0.2 L 1.0-4.0 10^3/uL Monocytes # (Auto) 0.2 0.0-1.0 10^3/uL Eosinophils # (Auto) 0.1 0.0-0.3 10^3/uL Basophils # (Auto) 0.0 0.0-0.1 10^3/uL Immature Granulocyte # (Auto) 0.0 0.0-0.1 10^3/uL Percent Immature Platelet Fraction 2.7 0.0-7.6 % Prothrombin Time 20.4 H 12.2-14.7 SEC INR Comment 1.7 H 0.8-1.4 Activated Partial Thromboplast Time 80 H 24-35 SEC Fibrinogen 216 L 221-496 MG/DL D-Dimer 1.83 H 0.00-0.49 UG/ML Sodium Level 140 135-145 MMOL/L Potassium Level 2.8 L 3.6-5.0 MMOL/L Chloride Level 99 98-107 MMOL/L Carbon Dioxide Level 28 21-32 MMOL/L Anion Gap 13 5-14 MMOL/L Blood Urea Nitrogen 21 H 7-18 MG/DL Creatinine 3.39 H 0.60-1.30 MG/DL Estimat Glomerular Filtration Rate 18 BUN/Creatinine Ratio 6 Glucose Level 108 H 70-105 MG/DL Lactic Acid Level 2.00 0.50-2.00 MMOL/L Calcium Level 7.5 L 8.5-10.1 MG/DL Corrected Calcium 8.6 8.5-10.1 MG/DL Total Bilirubin 2.4 H 0.1-1.0 MG/DL Aspartate Amino Transf (AST/SGOT) 35 H 5-34 U/L Alanine Aminotransferase (ALT/SGPT) 8 0-55 U/L Alkaline Phosphatase 146 H 40-136 U/L Total Protein 6.5 6.4-8.2 GM/DL Albumin 2.6 L 3.2-4.5 GM/DL Urine Color RED H Urine Clarity BLOODY H Urine pH 8.5 5-9 Urine Specific [place] 1.005 L 1.016-1.022 Urine Protein 4+ NEGATIVE Urine Glucose (UA) NEGATIVE NEGATIVE Urine Ketones 2+ H NEGATIVE Urine Nitrite NA NEGATIVE Urine Bilirubin 3+ H NEGATIVE Urine Urobilinogen NA < = 1.0 MG/DL Urine Leukocyte Esterase NA NEGATIVE Urine RBC (Auto) 3+ H NEGATIVE Urine RBC TNTC H /HPF Urine WBC 5-10 H /HPF Urine Crystals NONE /LPF Urine Bacteria MODERATE H /HPF Urine Casts NONE /LPF Urine Mucus NEGATIVE /LPF Urine Culture Indicated CULTURE PENDING My Orders Orders - DEV LANE APRN Cbc With Automated Diff (12/10/20 12:39) Comprehensive Metabolic Panel (12/10/20 12:39) Blood Culture (12/10/20 12:39) Sputum Culture (12/10/20 12:39) Urinalysis (12/10/20 12:39) Urine Culture (12/10/20 12:39) Protime With Inr (12/10/20 12:39) Partial Thromboplastin Time (12/10/20 12:39) Chest 1 View, Ap/Pa Only (12/10/20 12:39) Ed Iv/Invasive Line Start (12/10/20 12:39) Ed Iv/Invasive Line Start (12/10/20 12:39) Vital Signs Adult Sepsis Patie Q15M (12/10/20 12:39) O2 (12/10/20 12:39) Remove Rings In Anticipation O (12/10/20 12:39) Lactic Acid Analyzer (12/10/20 12:39) Fibrin Degradation Products (12/10/20 12:39) Fibrinogen (12/10/20 12:39) Oxymetazoline 0.05% Nasal [place] (Afrin 0. (12/10/20 13:54) Medications Given in ED Current Medications Medications Dose Ordered Sig/Stephen Route Start Time Stop Time Status Last Admin Dose Admin Oxymetazoline HCl 30 ml STK-MED ONCE .ROUTE 12/10/20 13:54 12/10/20 13:57 DC 12/10/20 13:55 30 ML Vital Signs/I&O 12/10/20 12/10/20 12:35 12:36 Temp 36.8 Pulse 106 Resp 17 B/P (MAP) 74/35 (48) Pulse Ox 95 95 O2 Delivery OxyMask OxyMask O2 Flow Rate 15.00 Diagnostic Imaging Diagonstic Imaging: Xray Plain Films/CT/US/NM/MRI: chest Comments NAME: LOVE MÁRQUEZ MED REC#: [id number] PT STATUS: REG ER : 1955 PHYSICIAN: DEV LANE APRN ADMIT DATE: 12/10/20/ER Draft Date of Exam:12/10/20 CHEST 1 VIEW, AP/PA ONLY INDICATION: Sepsis. COMPARISON: 11/15/2020. FINDINGS: Single view of the chest demonstrates known dextrocardia with cardiac enlargement. There is stable central vascular congestion. There is some increasing infiltrate in the left base. Bibasilar atelectasis persists. Trace bilateral pleural effusions are noted. There is no pneumothorax. ET tube has been removed. The right IJ catheter is in good position. IMPRESSION: 1. Cardiac enlargement with stable central vascular congestion. 2. Slightly increased infiltrate left lung base. Dictated on workstation # [id number] Dict: 12/10/20 1259 Trans: 12/10/20 1302 [id number] Interpreted by: KOURTNEY GUZMAN Electronically signed by: Departure Communication (Admissions) 1400-patient's blood pressure is 67/48. Patient does not want central line access. His nose is dripping constantly blood. He refuses to allow packing. He refuses to allow me to send it back to [place]. I offered to transfer to any other hospital for admission and ongoing hemodialysis needs and he continues to decline that. He states "I would rather ". I discussed with him. He states "I do not like dying, but I do not like this either". He would prefer to be sent back to the skilled nursing and allowed to . I discussed hospice with him and initially he was reluctant but I stated that if he is adamant that he does not want any aggressive measure to cure her or treat his condition then hospice was the best option for allowing natural and keeping him comfortable while this happens. I offered to admit him here and keep him comfortable while he passes and he agrees with this option. He would like to stay here and be allowed to naturally. I discussed with his brother Cristofer who states that patient has "been dealing with this for a long time" and he believes that he is in fact ready to . Brother is supportive of patient's decision to be admitted here for comfort measures only. Brother and sister will be in route to see the patient. Impression Primary Impression: Thrombocytopenia Additional Impressions: Epistaxis Symptomatic anemia Atrial fibrillation Hemodialysis patient End of life care Disposition: ADMITTED INPATIENT Condition: Stable Admissions Decision to Admit Reason: Admit from ER (General) Decision to Admit/Date: Dec 10, 2020 Time/Decision to Admit Time: 14:34 Departure-Patient Inst. Referrals: DEYSI SWAIN DO (PCP/Family) Primary Care Physician DEV LANE APRN Dec 10, 2020 12:55
[2020-12-10 12:58] LABS: BASOPHILS % (AUTO) 0 % (0-10); EOSINOPHILS # (AUTO) 0.1 10^3/uL (0.0-0.3); EOSINOPHILS % (AUTO) 2 % (0-10); HEMATOCRIT 26 % (40-54); HEMOGLOBIN 8.3 g/dL (13.3-17.7); LYMPHOCYTES # (AUTO) 0.2 10^3/uL (1.0-4.0); LYMPHOCYTES % (AUTO) 10 % (12-44); MEAN CORPUSCULAR HEMOGLOBIN 29 pg (25-34); MEAN CORPUSCULAR HGB CONC 32 g/dL (32-36); MEAN CORPUSCULAR VOLUME 90 fL (80-99); MEAN PLATELET VOLUME 9.4 fL (9.0-12.2); MONOCYTES # (AUTO) 0.2 10^3/uL (0.0-1.0); MONOCYTES % (AUTO) 8 % (0-12); NEUTROPHILS # (AUTO) 1.8 10^3/uL (1.8-7.8); NEUTROPHILS % (AUTO) 79 % (42-75); PLATELET COUNT 54 10^3/uL (130-400); WHITE BLOOD COUNT 2.3 10^3/uL (4.3-11.0)
--- NOTE | 2020-12-10 13:03 | Diagnostic Imaging Report ---
INDICATION: Sepsis. COMPARISON: 11/15/2020. FINDINGS: Single view of the chest demonstrates known dextrocardia with cardiac enlargement. There is stable central vascular congestion. There is some increasing infiltrate in the left base. Bibasilar atelectasis persists. Trace bilateral pleural effusions are noted. There is no pneumothorax. ET tube has been removed. The right IJ catheter is in good position. IMPRESSION: 1. Cardiac enlargement with stable central vascular congestion. 2. Slightly increased infiltrate left lung base. Dictated by: Dictated on workstation # [id number]
[2020-12-10 13:07] LABS: ALBUMIN 2.6 GM/DL (3.2-4.5)
[2020-12-10 13:08] LABS: POTASSIUM 2.8 MMOL/L (3.6-5.0)
[2020-12-10 13:09] LABS: CALCIUM 7.5 MG/DL (8.5-10.1)
[2020-12-10 13:10] LABS: TOTAL PROTEIN 6.5 GM/DL (6.4-8.2)
[2020-12-10 13:12] LABS: BILIRUBIN,TOTAL 2.4 MG/DL (0.1-1.0)
[2020-12-10 13:14] LABS: CREATININE SERUM 3.39 MG/DL (0.60-1.30)
[2020-12-10 13:16] LABS: FIBRIN DEGRADATION PRODUCTS 1.83 UG/ML (0.00-0.49); INR 1.7 (0.8-1.4); PROTHROMBIN TIME PATIENT 20.4 SEC (12.2-14.7)
[2020-12-10 13:38] LABS: CLARITY,URINE BLOODY; COLOR,URINE RED; GLUCOSE, URINE (UA) NEGATIVE (NEGATIVE); PH,URINE 8.5 (5-9); PROTEIN,URINE 4+ (NEGATIVE)
[2020-12-10 13:39] LABS: KETONES,URINE 2+ (NEGATIVE)
[2020-12-10 13:43] LABS: BILIRUBIN,URINE 3+ (NEGATIVE); RBC,URINE TNTC /HPF
[2020-12-10 13:44] LABS: BACTERIA,URINE MODERATE /HPF
[2020-12-10] MEDS ORDERED: OXYMETAZOLINE (AFRIN) 0.05% NA 30 ML BTL ONE (13:54)
--- NOTE | 2020-12-10 14:40 | History & Physical-Hospitalist ---
History of Present Illness HPI/Chief Complaint Mr Block is a 65yoCM with a PMH of CKD, HTN, DM, CHF, a-fib who presented to the ER due to nosebleed. He was found to be hypotensive and had blood coming from his nose, catheter, and port. Labs were drawn and consistent with DIC. He has been recently admitted at [place] and has had multiple ER visits over the last couple of months. He decided he only wants comfort care at this point as he is tired of being sick. He is otherwise not able to tell me much and just states he doesn't feel well. His brother was contacted and is in agreement and en route. We did discuss options for hospice as well for GIP admission and they requested [facility] as they are from [place] and familiar with the agency. Source: patient Exam Limitations: clinical condition Date Seen 12/10/20 Time Seen by a Provider: 14:35 Attending Physician PCP Joel Baird DO Referring Physician Date of Admission Home Medications & Allergies Home Medications Reviewed patient Home Medication Reconciliation performed by pharmacy medication reconciliations brain wave technician and/or nursing. Patients Allergies have been reviewed. Allergies Allergies Coded Allergies oxycodone (Verified Allergy, Intermediate, 03/09/19) Past Dxfwuwx-Brwovf-Mvioby Hx Patient Social History Employed/Student: retired Tobacco Use?: No Use of E-Cig and/or Vaping dev: No Substance use?: No Alcohol Use?: No Pt feels they are or have been: No Seasonal Allergies Seasonal Allergies: Yes Current Status Advance Directives: No Communicates: Verbally Primary Language: Nauruan Preferred Spoken Language: Nauruan Is interpretation needed?: No Past Medical History Surgeries: Pacemaker Atrial Fibrillation, Cardiomyopathy, Chronic Edema/Swelling, High Cholesterol, Hypertension Neuropathy Benign Prostatic Hyperpl, Renal Failure Gastroesophageal Reflux Diabetes, Insulin dep, Hypothyroidsim Depression Blood Disorders: No Family Medical History Reviewed Nursing Family Hx ADMITTED 03/09/20 FOR MRSA BACTEREMIA WITH SEPSIS, DX WITH RENAL FAILURE AND WAS TO START DIALYSIS 03/29/20 Review of Systems ROS-Unable to Obtain: clinical condition Constitutional: see HPI Physical Exam Physical Exam Vital Signs Vital Signs - First Documented 12/10/20 12/10/20 12:35 12:36 Temp 36.8 Pulse 106 Resp 17 B/P (MAP) 74/35 (48) Pulse Ox 95 O2 Delivery OxyMask O2 Flow Rate 15.00 Capillary Refill : Less Than 3 Seconds Height, Weight, BMI Height: '" Weight: lbs. oz. kg; 29.00 BMI Method: General Appearance: Chronically ill, Moderate Distress HEENT: Other (continuous bloody drainage from ) Respiratory: Lungs Clear, No Respiratory Distress Cardiovascular: Regular Rate, Rhythm, No Murmur Gastrointestinal: Normal Bowel Sounds, Non Tender, Soft Genital/Rectal: Other (catheter with bloody urine) Extremity: Pedal Edema, Slow Capillary Refill, Swelling, Other (venous stasis dermatitis) Neurologic/Psychiatric: Alert, Other (oriented to person and place, not to time) Results Results/Procedures Labs Laboratory Tests 12/10/20 12:47 Patient resulted labs reviewed. Imaging: Reviewed Imaging Report Imaging [facility] [place] NAME: [facility] REC#: [id number] PT STATUS: REG ER : 1955 PHYSICIAN: DEV LANE CCNA ADMIT DATE: 12/10/20/ER Draft Date of Exam:12/10/20 CHEST 1 VIEW, AP/PA ONLY INDICATION: Sepsis. COMPARISON: 11/15/2020. FINDINGS: Single view of the chest demonstrates known dextrocardia with cardiac enlargement. There is stable central vascular congestion. There is some increasing infiltrate in the left base. Bibasilar atelectasis persists. Trace bilateral pleural effusions are noted. There is no pneumothorax. ET tube has been removed. The right IJ catheter is in good position. IMPRESSION: 1. Cardiac enlargement with stable central vascular congestion. 2. Slightly increased infiltrate left lung base. Dictated on workstation # [id number] Dict: 12/10/20 1259 Trans: 12/10/20 1302 [id number] Interpreted by: KOURTNEY GUZMAN Electronically signed by: Assessment/Plan Admission Diagnosis Comfort Care Admission Status: Inpatient Order (span 2 midnights) Reason for Inpatient Admission: admit to [facility] Assessment and Plan Comfort Care DIC CKD-noncompliant with HD Family and patient elected comfort care only and request [facility] Admit to [facility] Palliative care consulted, appreciate assistance Will try thrombin spray to help with discomfort from nosebleed Black linens as able Comfort care orderset placed Brother en route ABRAHAM ONEAL MD Dec 10, 2020 14:40
[2020-12-10] MEDS ORDERED: LORazepam INJ 2 MG/ML (ATIVAN) VIAL IVP PRN (15:00)
[2020-12-10] MEDS ORDERED: ACETAMINOPHEN 650 MG SUPP (TYLENOL) PR PRN (15:00)
[2020-12-10] MEDS ORDERED: LORazepam ORAL CONCENTRATE 2 MG/ML 30 ML (ATIVAN) PO PRN (15:00)
[2020-12-10] MEDS ORDERED: morphine (ROXINOL) 10 MG/0.5 ML oral conc 0.5 ML PO PRN (15:00)
[2020-12-10] MEDS ORDERED: ARTIFICAL TEARS 0.4 ML UNIT DOSE (REFRESH PLUS) OU PRN (15:00)
[2020-12-10] MEDS ORDERED: morphine INJ 4 MG/ML 1 ML (VIAL/SYRINGE) IV PRN (15:00)
[2020-12-10] MEDS ORDERED: BISACODYL 10 MG SUPP (DULCOLAX) PR PRN (15:00)
[2020-12-10] MEDS ORDERED: RT-ALBUTEROL/IPRATROPIUM 3 ML (DUONEB) VIAL INH PRN (15:00)
[2020-12-10] MEDS ORDERED: GLYCOPYRROLATE 0.2 MG/ML (ROBINUL) 2 ML VIAL IV PRN (15:00)
[2020-12-10] MEDS ORDERED: ATROPINE 1% OPHTHALMIC SOLN 2 ML SL PRN (15:00)
[2020-12-10] MEDS ORDERED: PROMETHAZINE INJ 25 MG/ML (PHENERGAN) AMP IVP PRN (15:00)
[2020-12-10] MEDS ORDERED: ONDANSETRON 4 MG/2 ML (SDV) Z0FRAN IVP PRN (15:00)
[2020-12-10] MEDS ORDERED: morphine IMMEDIATE RELEASE 15 MG TABLET PO PRN (15:00)
[2020-12-10] MEDS ORDERED: SALIVA STIMULANT MOUTH SPRAY (BIOTENE) 1.5 OZ MM PRN (15:00)
[2020-12-10] MEDS ORDERED: SCOPOLAMINE 1.5 MG (TRANSDERM-SCOP) PATCH TOP SCH (15:00)
[2020-12-10 15:02] VITALS: BP 74/36
[2020-12-10] MEDS ORDERED: THROMBIN 5,000 UNIT (RECOTHROM) VIAL TOP ONE (15:15)
[2020-12-10] MEDS: morphine INJ 4 MG/ML 1 ML (VIAL/SYRINGE) IV PRN ×2 (18:08→20:13)
[2020-12-10] MEDS: LORazepam INJ 2 MG/ML (ATIVAN) VIAL IVP PRN ×2 (18:08→20:13)
[2020-12-10] MEDS ORDERED: OXYMETAZOLINE (AFRIN) 0.05% NA 30 ML BTL SCH (21:00)
--- NOTE | 2020-12-27 13:02 | Discharge Summary ---
Discharge Summary Date of Admission Dec 10, 2020 at 14:37 Date of Discharge Dec 10, 2020 at 22:31 Admission Diagnosis Comfort Care Comfort Measures/ End of Life Care: Comfort Measures Patient was admitted to [facility] status on comfort care measures due to end stage renal disease, DIC, and GI bleed. He was admitted to [facility] and passed peacefully with his family at his side. Discharge Diagnosis Comfort Care DIC CKD-noncompliant with HD Family and patient elected comfort care only and request [facility] Admit to [facility] Palliative care consulted, appreciate assistance Will try thrombin spray to help with discomfort from nosebleed Black linens as able Comfort care orderset placed Brother en route ABRAHAM ONEAL MD Dec 27, 2020 13:02
== END 2020-12-10 22:31 | disposition expired | DRG 813 ==
LOC: EDUNIT# 12:14 → ER 12:15 → 4TH 14:37
PROVIDERS: ADMIT Family Medicine; ATTEND Family Medicine
DX: D65 Disseminated intravascular coagulation [defibrination syndrome] (principal); I42.9 Cardiomyopathy, unspecified; I13.0 Hypertensive heart and chronic kidney disease with heart failure and stage 1 through stage 4 chronic kidney disease, or unspecified chronic kidney disease; Z51.5 Encounter for palliative care; Z66 Do not resuscitate; N18.9 Chronic kidney disease, unspecified; Z91.15 Patient's noncompliance with renal dialysis; I48.91 Unspecified atrial fibrillation; E78.00 Pure hypercholesterolemia, unspecified; N40.0 Benign prostatic hyperplasia without lower urinary tract symptoms; K21.9 Gastro-esophageal reflux disease without esophagitis; E11.22 Type 2 diabetes mellitus with diabetic chronic kidney disease; E03.9 Hypothyroidism, unspecified; F32.9 Major depressive disorder, single episode, unspecified; I50.9 Heart failure, unspecified; R04.0 Epistaxis; Z79.01 Long term (current) use of anticoagulants; Z79.899 Other long term (current) drug therapy; E66.01 Morbid (severe) obesity due to excess calories; Z95.0 Presence of cardiac pacemaker; D64.9 Anemia, unspecified
CPT/HCPCS: 36415; 71045; 80053; 81000; 83605; 85025; 85379; 85384; 85610; 85730; 87040; 87077; 87088; 87186